=== PATIENT | male | born 1965 | race Hispanic/Latino ===

== ENCOUNTER 2020-10-24 15:41 | Emergency (ER) | payer SELFPAY ==
[2020-10-24 15:57] VITALS: BP 170/87; PULSE 64; RESP 12; TEMP 37; O2SAT 99; BMI 40.1
--- NOTE | 2020-10-24 16:19 | ED_ITS ---
HPI - Dizziness General Chief Complaint: Dizziness Stated Complaint: Dizzy, High Blood Sugar, Numb Fingers on Lt Hand Time Seen by Provider: 10/24/20 15:54 Source: patient Mode of arrival: Ambulatory History of Present Illness HPI Narrative: Patient is a 55-year-old male with history of diabetes presenting with sudden onset of dizziness that started yesterday. He said he was just sitting down when he got dizzy. It was worse when he turns his head both left and right and positional. He was able to sleep piece not had any nausea vomit ing no numbness tingling or weakness. He says now he is actually feeling better now ED department. He noticed yesterday that his glucose was in the 300 which is very abnormal for him. He has not had any fever chills cough abdominal pain painful or frequent urination or any other symptoms. 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 He has no chest pain or palpitations. MD complaint: dizziness Related Data Allergies Allergy/AdvReac Type Severity Reaction Status Date / Time ibuprofen Allergy Severe Swelling Verified 10/24/20 16:05 of Lip/Tongue/Throat povidone-iodine Allergy Severe Blister Verified 10/24/20 16:05 [From Betadine] soap [From Betadine] Allergy Severe Blister Verified 10/24/20 16:05 Review of Systems Review of Systems ROS Unobtainable: All systems reviewed & are unremarkable except as noted in HPI and below Constitutional Constitutional: Denies chills, Denies fever(s), Denies lethargy and Denies weakness Cardiovascular Cardiovascular: Denies chest pain, Denies irregular heart rhythm, Denies lightheadedness, Denies palpitations, Denies dyspnea, Denies dyspnea on exertion and Denies orthopnea Respiratory Respiratory: Denies cough, Denies dyspnea, Denies dyspnea on exertion and Denies wheezing Gastrointestinal Gastrointestinal: Denies abdominal pain, Denies change in bowel habits, Denies diarrhea, Denies nausea and Denies vomiting Genitourinary Genitourinary: Denies urinary hesitancy and Denies urinary incontinence Genitourinary: Denies urinary incontinence and Denies urinary hesitancy Musculoskeletal Musculoskeletal: Denies back pain and Denies myalgias Integumentary/Breasts Skin/Breast: Denies pruritus, Denies erythema, Denies rash and Denies wounds Neurologic Neurologic: Denies abnormal movements and Denies weakness Endocrine Endocrine: Denies palpitations Allergic/Immunologic Allergic/Immunologic: Denies wheezing Patient History Medical History (Updated 10/24/20 @ 17:36 by Martha Cordero DO) Diabetes Social History Smoking Status: Never smoker Smoking Status: Never smoker Substance Use Type: marijuana Exam Initial Vital Signs Initial Vital Signs: Vital Signs Temperature 98.6 F 10/24/20 15:57 Pulse Rate 64 10/24/20 15:57 Respiratory Rate 12 10/24/20 15:57 Blood Pressure 170/87 H 10/24/20 15:57 Pulse Oximetry 99 10/24/20 15:57 GENERAL: Well-appearing, well-nourished and in no acute distress. HEENT: Head atraumatic,EOMI, pupils reactive, face symmetric, moist mucous membranes CARDIOVASCULAR: Regular rate and rhythm without murmurs, rubs or gallops. RESPIRATORY: Breath sounds equal bilaterally, no wheezes rales or rhonchi. ABDOMEN: Soft, nontender. Normoactive bowel sounds all 4 quadrants. No gu arding or rebound. EXTREMITIES: Normal range of motion, no clubbing or edema. Neurovascularly intact NEUROLOGICAL: Alert and oriented x4.Normal gait and speech. Cranial nerves II through XII grossly intact. Good [id number], good [id number], strength equal bilaterally, no dysarthria or aphasia, sensation in tact to soft touch bilaterally, no visual changes, no facial droop SKIN: Warm, dry, no laceration, no petechiae, no rashes or lesions. Scores NIH Stroke Scale Level of Conciousness: Alert, keenly responsive Ask month/age: Answers both questions correctly. Open/close eyes, close hand: Performs both tasks correctly Best gaze horizontal: Normal Visual wang: No visual loss Facial palsy: Normal symetrical movement Left arm drift: No drift for full 10 sec Right arm drift: No drift for full 10 sec Left leg drift: No drift for full 5 sec Right leg drift: No drift for full 5 sec Limb ataxia: Absent Sensory on face/arms/legs: Normal, no sensory loss Best language: No aphasia, normal Dysarthria: Normal Extinction or inattention: No abnormality Total NIH Stroke scale score: 0 Course Orders Ordered: ED Orders 10/24/20 16:15 Complete Blood Count AUTO DIFF Stat Comprehensive Metabolic Panel Stat Lipase Stat Troponin & CK Cardiac Panel Stat 10/24/20 17:00 Urinalysis and Microscopic Stat Discontinued Medications Sodium Chloride (Normal Saline 0.9%) 1,000 mls @ 1,000 mls/hr IV CONT BREE Last Infusion: 10/24/20 18:04 Dose: 0 mls/hr Documented by: Admin: 10/24/20 16:33 Dose: 1,000 mls/hr Documented by: JOSE Vital Signs Vital signs: Vital Signs - 8 hr 10/24/20 15:57 10/24/20 16:20 10/24/20 16:30 Temperature 98.6 F Pulse Rate 64 69 68 Respiratory Rate 12 Blood Pressure 170/87 H 147/75 H Pulse Oximetry 99 98 97 10/24/20 17:00 10/24/20 18:06 Temperature Pulse Rate 65 66 Respiratory Rate 15 14 Blood Pressure 143/76 H 136/93 H Pulse Oximetry 97 98 MDM - Dizziness Lab Data Attestation: I reviewed the patient's lab results. Result diagrams: 10/24/20 16:15 10/24/20 16:15 Labs: Lab Results 10/24/20 10/24/20 10/24/20 Range/Units 16:15 16:15 17:00 WBC 7.2 (4.5-11.0) X10^3/uL RBC 5.12 (4.5-5.9) X10^6/uL Hgb 16.2 (13.5-17.5) g/dL Hct 44.7 (41-53) % MCV 87.2 (80-100) fL MCH 31.7 (26-34) PG MCHC 36.3 H (30-36) % RDW 13.1 (11.6-14.8) % Plt Count 138 L (150-400) X10^3/uL Neut % (Auto) 68.4 (50-75) % Lymph % (Auto) 22.3 L (25-40) % [place] % (Auto) 7.3 (3-14) % Eos % (Auto) 1.2 L (2-4) % Baso % (Auto) 0.8 (0-2) % Neut # (Auto) 4900 (0366-8056) /uL Lymph # (Auto) 1600 (5956-5810) /uL [place] # (Auto) 500 (0-900) /uL Eos # (Auto) 100 (0-450) /uL Baso # (Auto) 100 (0-100) /uL Sodium 134 L (137-145) mmol/L Potassium 4.3 (3.4-5.1) mmol/L Chloride 104 (98-107) mmol/L Carbon Dioxide 22 (22-32) mmol/L BUN 24 H (9-20) mg/dL Creatinine 1.24 (0.66-1.25) mg/dL Estimated GFR > 60.0 (>60) mL/min BUN/Creatinine Ratio 19.4 (6-22) Glucose 237 H (70-100) mg/dL Calcium 9.3 (8.4-10.2) mg/dL Total Bilirubin 0.5 (0.2-1.3) mg/dL AST 28 (17-59) IU/L ALT 29 (<50) IU/L Alkaline Phosphatase 81 (38-126) U/L Total Creatine Kinase 87 (55-170) U/L CK-MB (CK-2) TNP CK-MB (CK-2) Rel Index TNP Troponin I < 0.012 (0.01-0.034) ng/mL Total Protein 7.0 (6.3-8.2) g/dL Albumin 3.9 (3.5-5.0) g/dL Globulin 3.1 (1.7-4.1) g/dL Albumin/Globulin Ratio 1.3 (1.0-2.8) Lipase 112 (23-300) U/L Urine Color Yellow Urine Appearance Clear Urine pH 5.0 (4.5-8.0) Ur Specific [place] 1.025 (1.000-1.035) Urine Protein Negative (Negative) Urine Glucose (UA) 1+ H (Negative) g/dL Urine Ketones Trace H (NEGATIVE) Urine Occult Blood Negative (Negative) Urine Nitrate Negative (Negative) Urine Bilirubin Negative (NEGATIVE) Urine Urobilinogen 0.2 (0.2) E.U./dL Ur Leukocyte Esterase Negative (NEGATIVE) Urine RBC None seen (0-5/HPF) Urine WBC None seen (0-5/HPF) Urine Bacteria None seen (None) Ur Culture Indicated? Cult not indicated Urine Dip Bedside Urine Glucose 1000 mg/dl Bedside Urine Bilirubin - Negative Bedside Urine Ketone +/- 5 Urine Specific [place] 1.025 Bedside Urine Occult Blood - Negative Bedside Urine pH 6.0 Bedside Urine Protein - Negative Bedside Urine Urobilinogen - Negative Bedside Urine Nitrite - Negative Bedside Urine Leukocytes - Negative Esterase ECG Data Attestation: I personally reviewed and interpreted this ECG as follows: Prior ECG tracings: not available for review Interpretation: Normal sinus rhythm rate 67 p.r. interval 176 QRS [address] changes or T-wave inversions PVC noted MDM Narrative Medical decision making narrative: Patient's dizziness has completely resolved by the time he got to the ED he received 1 L bolus of normal saline he is ambulatory in the emergency department without any issues. Blood work is overall reassuring no neurologic deficits. At this time recommend follow-up for his diabetes control Discharge Plan Departure Patient Disposition: Home Clinical Impression: Vertigo Instructions: DI for Vertigo Activity Restrictions/Additional Instructions: *You have been diagnosed with vertigo now resolved *What to do: At this time that it sounds as though you had mild case of vertigo and likely has resolved. Your glucose is 237 today please see your primary care provider you may need adjustment in medication. *Continue to take medications as directed *Follow up with your primary care provider in 2-3 days *Return to ER if you should have increasing dizziness weakness lightheadedness or any new, worsening or concerning symptoms Referrals: Cesar Benitez MD [Primary Care Provider] -
[2020-10-24 16:20] VITALS: PULSE 69; O2SAT 98
[2020-10-24 16:30] VITALS: BP 147/75; PULSE 68; O2SAT 97
[2020-10-24 16:33] LABS: Add Manual Diff / Slide Review NO; Basophils Absolute Auto 100 /uL (0-100); Basophils Percent Auto 0.8 % (0-2); Eosinophils Absolute Auto 100 /uL (0-450); Eosinophils Percent Auto 1.2 % (2-4); Hematocrit 44.7 % (41-53); Hemoglobin 16.2 g/dL (13.5-17.5); Lymphocytes Absolute Auto 1600 /uL (1100-4500); Lymphocytes Percent Auto 22.3 % (25-40); Mean Corpuscular HGB Conc 36.3 % (30-36); Mean Corpuscular Hemoglobin 31.7 PG (26-34); Mean Corpuscular Volume 87.2 fL (80-100); Monocytes Absolute Auto 500 /uL (0-900); Monocytes Percent Auto 7.3 % (3-14); Neutrophils Absolute Auto 4900 /uL (1500-7000); Neutrophils Percent Auto 68.4 % (50-75); Platelet Count 138 X10^3/uL (150-400); Red Blood Cell Count 5.12 X10^6/uL (4.5-5.9); Red Cell Distribution Width 13.1 % (11.6-14.8); White Blood Cell Count 7.2 X10^3/uL (4.5-11.0)
[2020-10-24] MEDS: SODIUM CHLORIDE 0.9% 1,000 ML 1000 ML IV (16:33)
[2020-10-24 16:48] LABS: Alanine Aminotransferase 29 IU/L (<50); Albumin 3.9 g/dL (3.5-5.0); Albumin Globulin Ratio 1.3 (1.0-2.8); Alkaline Phosphatase 81 U/L (38-126); Aspartate Aminotransferase 28 IU/L (17-59); BUN Creatinine Ratio 19.4 (6-22); Bilirubin Total 0.5 mg/dL (0.2-1.3); Blood Urea Nitrogen 24 mg/dL (9-20); Calcium 9.3 mg/dL (8.4-10.2); Carbon Dioxide 22 mmol/L (22-32); Chloride 104 mmol/L (98-107); Creatine Kinase 87 U/L (55-170); Estimated Glomerular Filt Rate > 60.0 mL/min (>60); Globulin 3.1 g/dL (1.7-4.1); Glucose 237 mg/dL (70-100); HEMOLYSIS 43 (0-50); Lipase 112 U/L (23-300); Potassium 4.3 mmol/L (3.4-5.1); Sodium 134 mmol/L (137-145)
[2020-10-24 17:00] VITALS: BP 143/76; PULSE 65; RESP 15; O2SAT 97
[2020-10-24 17:47] LABS: Appearance Urine UA CLEAR; Bacteria Urine None Seen; Bilirubin Urine UA NEGATIVE (NEGATIVE); Color Urine UA YELLOW; Glucose Urine UA 1+ g/dL (Negative); Ketones Urine UA TRACE (NEGATIVE); Leukocyte Esterase Urine UA NEGATIVE (NEGATIVE); Nitrite Urine UA NEGATIVE (Negative); Occult Blood Urine UA NEGATIVE (Negative); Protein Urine UA NEGATIVE (Negative); RBC Urine None Seen (0-5/HPF); Specific Gravity Urine UA 1.025 (1.000-1.035); Urobilinogen Urine UA 0.2 E.U./dL (0.2); WBC Urine None Seen (0-5/HPF)
[2020-10-24 17:57] LABS: Culture Indicated Urine Cult Not Indicated
[2020-10-24 18:00] LABS: Troponin I < 0.012 ng/mL (0.01-0.034)
[2020-10-24 18:06] VITALS: BP 136/93; PULSE 66; RESP 14; O2SAT 98
== END 2020-10-24 18:07 | disposition home or self-care (01) ==
PROVIDERS: Emergency Provider Emergency Medicine; PCP Family Medicine
DX: R42 Dizziness and giddiness (principal)
CPT/HCPCS: 36415; 80053; 81001; 81003; 82550; 83690; 84484; 85025; 93005; 93010; 96360; 96361; 99284

== ENCOUNTER 2020-12-15 16:17 | Inpatient (IN) | payer SELFPAY ==
[2020-12-15] VITALS (9 sets, daily range): BP systolic 162–195; BP diastolic 86–103; PULSE 68–74; RESP 20; TEMP 36.5; O2SAT 94–99
[2020-12-15 17:02] LABS: Add Manual Diff / Slide Review NO; Basophils Absolute Auto 100 /uL (0-100); Basophils Percent Auto 0.7 % (0-2); Eosinophils Absolute Auto 100 /uL (0-450); Eosinophils Percent Auto 0.8 % (2-4); Hematocrit 44.4 % (41-53); Hemoglobin 15.8 g/dL (13.5-17.5); Lymphocytes Absolute Auto 1000 /uL (1100-4500); Lymphocytes Percent Auto 13.8 % (25-40); Mean Corpuscular HGB Conc 35.5 % (30-36); Mean Corpuscular Hemoglobin 31.5 PG (26-34); Mean Corpuscular Volume 88.7 fL (80-100); Monocytes Absolute Auto 600 /uL (0-900); Monocytes Percent Auto 8.8 % (3-14); Neutrophils Absolute Auto 5600 /uL (1500-7000); Neutrophils Percent Auto 75.9 % (50-75); Platelet Count 119 X10^3/uL (150-400); Red Blood Cell Count 5.01 X10^6/uL (4.5-5.9); Red Cell Distribution Width 13.1 % (11.6-14.8); White Blood Cell Count 7.4 X10^3/uL (4.5-11.0)
[2020-12-15 17:09] LABS: Alanine Aminotransferase 21 IU/L (<50); Albumin 3.8 g/dL (3.5-5.0); Albumin Globulin Ratio 1.3 (1.0-2.8); Alkaline Phosphatase 74 U/L (38-126); Aspartate Aminotransferase 17 IU/L (17-59); BUN Creatinine Ratio 9.3 (6-22); Bilirubin Total 0.7 mg/dL (0.2-1.3); Calcium 8.4 mg/dL (8.4-10.2); Carbon Dioxide 16 mmol/L (22-32); Chloride 101 mmol/L (98-107); Estimated Glomerular Filt Rate 5.3 mL/min (>60); Globulin 2.9 g/dL (1.7-4.1); Glucose 322 mg/dL (70-100); HEMOLYSIS < 15 (0-50); Lipase 146 U/L (23-300); Potassium 5.2 mmol/L (3.4-5.1); Sodium 132 mmol/L (137-145); Total Protein 6.7 g/dL (6.3-8.2)
[2020-12-15 17:41] LABS: Bacteria Urine None Seen; WBC Urine None Seen (0-5/HPF)
[2020-12-15 17:43] LABS: Blood Urea Nitrogen 94 mg/dL (9-20)
[2020-12-15] MEDS: ONDANSETRON 4 MG/2 ML INJ IV (17:49)
[2020-12-15] MEDS: SODIUM CHLORIDE 0.9% 1,000 ML 1000 ML IV (18:14)
[2020-12-15 18:16] LABS: Culture Indicated Urine Cult Not Indicated; RBC Urine 1-5/HPF (0-5/HPF)
--- NOTE | 2020-12-15 18:22 | ED.GENADULT ---
HPI - General Adult General Chief complaint: Abdominal Pain Stated complaint: gallbladder issues, sent by MD Time Seen by Provider: 12/15/20 18:03 Source: patient Mode of arrival: Ambulatory History of Present Illness HPI narrative: Patient is a 55-year-old male here for evaluation of right upper quadrant abdominal discomfort/right-sided abdominal discomfort. He states that he has had the symptoms for the past couple days. He thinks that is potentially his gallbladder that is causing problems. He does not remember exactly what he was doing at the time of the onset. Has had bowel movements without any changes in the symptoms. He has urinated without any changes in the symptoms. He has had kidney stones in the past and states this does not necessarily feel like a prior kidney stone. He has never had any issues with his gallbladder in the past. Has had some nausea but no vomiting. Has not tried anything for symptoms prior to arrival. Has been drinking water in taking his medications. Related Data Home Medications Medication Instructions Recorded Confirmed metformin 1,000 mg tablet 1,000 mg PO BID 12/15/20 12/15/20 Previous Rx's Medication Instructions Recorded semaglutide 3 mg tablet (Rybelsus) 3 mg PO DAILY 30 Days #30 tab 11/24/20 Allergies Allergy/AdvReac Type Severity Reaction Status Date / Time ibuprofen Allergy Severe Swelling Verified 11/24/20 15:21 of Lip/Tongue/Throat povidone-iodine Allergy Severe Blister Verified 11/24/20 15:21 [From Betadine] soap [From Betadine] Allergy Severe Blister Verified 11/24/20 15:21 Review of Systems Constitutional Constitutional: Denies fever(s) Cardiovascular Cardiovascular: Denies chest pain and Denies dyspnea Respiratory Respiratory: Denies dyspnea Gastrointestinal Gastrointestinal: Reports abdominal pain, Denies change in bowel habits and Reports nausea Genitourinary Genitourinary: Denies difficulty urinating and Denies dysuria Musculoskeletal Musculoskeletal: Denies back pain Integumentary/Breasts Skin/Breast: Denies rash Neurologic Neurologic: Reports system reviewed and no additional complaints, except as documented Psychiatric Psychiatric: Reports system reviewed and no additional complaints, except as documented Endocrine Endocrine: Reports system reviewed and no additional complaints, except as documented Hematologic/Lymphatic On Anticoagulants: No Allergic/Immunologic Allergic/Immunologic: Reports system reviewed and no additional complaints, except as documented Patient History Medical History Renal calculus Surgical History H/O lateral meniscus repair of left knee Liver laceration, major, with open wound into cavity Family History Father Diabetes mellitus Mother Lung cancer Social History Smoking Status: Never smoker Smoking Status: Never smoker Substance Use Type: marijuana Exam Initial Vital Signs Initial Vital Signs: Vital Signs Temperature 97.7 F 12/15/20 16:38 Pulse Rate 72 12/15/20 16:38 Respiratory Rate 20 12/15/20 16:38 Blood Pressure 195/103 H 12/15/20 16:38 Pulse Oximetry 97 12/15/20 16:38 Const General: cooperative and healthy appearing HENMT Head: normal to inspection and normocephalic Resp Auscultation: clear to auscultation bilaterally Cardio Rate: regular rate Rhythm: regular rhythm GI Inspection: normal to inspection Palpation: soft and No tender Back/Spine/Pelvis Back: No CVA tenderness Skin General: no rashes or lesions noted Neuro General: patient alert, patient awake and patient oriented x3 Extrem General: normal to inspection and capillary refill normal Psych Appearance: grossly normal Course Orders Ordered: ED Orders 12/15/20 20:12 XR KUB Stat 12/15/20 20:13 Consult to Urology Stat 12/15/20 20:20 COVID19 - ADMIT (SOFTWARE RELEASE MANAGER swab/PCR) Stat Acetaminophen (Acetaminophen 325 Mg Tablet) 650 mg PO Q6HR PRN PRN Reason: Fever/Mild Pain (1-3) Dextrose (Dextrose 50 % In Water 25 Gm/50 Ml Syringe) 25 gm IV PRN PRN PRN Reason: Hypoglycemia Hydromorphone HCl (Hydromorphone 0.5 Mg Inj) 0.5 mg IV Q3H PRN PRN Reason: Pain, Moderate (4-6) Last Admin: 12/16/20 02:27 Dose: 0.5 mg Documented by: CARLOS Lactated Ringer's (Lactated Ringers) 1,000 mls @ 125 mls/hr IV CONT BREE Insulin Glargine (Insulin Glargine 100 Unit/Ml 3ml Pen) 20 unit SUBCUT BEDTIME BREE Insulin Human Lispro (Insulin Lispro 100 Unit/Ml 3ml Vial) 0 unit SUBCUT ACHS BREE; Protocol Labetalol HCl (Labetalol 20 Mg/4 Ml Syringe) 5 mg IV Q4HR PRN PRN Reason: SBP > 160 Naloxone HCl (Naloxone 0.4 Mg/Ml Vial) 0.2 mg IV Q2MIN PRN PRN Reason: Opiate Reversal Ondansetron HCl (Ondansetron 4 Mg/2 Ml Inj) 4 mg IV Q8HR PRN PRN Reason: Nausea And Vomiting Discontinued Medications Hydromorphone HCl (Hydromorphone 0.5 Mg Inj) 0.5 mg IV NOW ONE Stop: 12/15/20 19:39 Last Admin: 12/15/20 21:12 Dose: 0.5 mg Documented by: CARLOS Hydromorphone HCl (Hydromorphone 0.5 Mg Inj) 0.5 mg IV NOW ONE Stop: 12/15/20 20:41 Last Admin: 12/15/20 20:47 Dose: 0.5 mg Documented by: VINI Sodium Chloride (Normal Saline 0.9%) 1,000 mls @ 1,000 mls/hr IV BOLUS ONE Stop: 12/15/20 19:03 Last Infusion: 12/15/20 20:14 Dose: 0 mls/hr Documented by: Admin: 12/15/20 18:14 Dose: 1,000 mls/hr Documented by: CARLOS Sodium Chloride (Normal Saline 0.9%) 1,000 mls @ 125 mls/hr IV CONT BREE Last Admin: 12/15/20 22:28 Dose: 125 mls/hr Documented by: BARBARA Ondansetron HCl (Ondansetron 4 Mg/2 Ml Inj) 4 mg IV NOW ONE Stop: 12/15/20 17:12 Last Admin: 12/15/20 17:49 Dose: 4 mg Documented by: CARLOS Vital Signs Vital signs: Vital Signs - 8 hr 12/15/20 20:29 12/15/20 20:30 Pulse Rate 70 69 Blood Pressure 170/94 H Pulse Oximetry 99 98 Medical Decision Making Lab Data Lab results reviewed: Yes I reviewed the patient's lab results. Result diagrams: 12/15/20 16:50 12/15/20 16:50 Labs: Lab Results 12/15/20 12/15/20 12/15/20 Range/Units 16:50 16:50 16:50 WBC 7.4 (4.5-11.0) X10^3/uL RBC 5.01 (4.5-5.9) X10^6/uL Hgb 15.8 (13.5-17.5) g/dL Hct 44.4 (41-53) % MCV 88.7 (80-100) fL MCH 31.5 (26-34) PG MCHC 35.5 (30-36) % RDW 13.1 (11.6-14.8) % Plt Count 119 L (150-400) X10^3/uL Neut % (Auto) 75.9 H (50-75) % Lymph % (Auto) 13.8 L (25-40) % [place] % (Auto) 8.8 (3-14) % Eos % (Auto) 0.8 L (2-4) % Baso % (Auto) 0.7 (0-2) % Neut # (Auto) 5600 (3131-0903) /uL Lymph # (Auto) 1000 L (3867-2987) /uL [place] # (Auto) 600 (0-900) /uL Eos # (Auto) 100 (0-450) /uL Baso # (Auto) 100 (0-100) /uL Sodium 132 L (137-145) mmol/L Potassium 5.2 H (3.4-5.1) mmol/L Chloride 101 (98-107) mmol/L Carbon Dioxide 16 L (22-32) mmol/L BUN 94 H (9-20) mg/dL Creatinine 10.1 H* (0.66-1.25) mg/dL Estimated GFR 5.3 L (>60) mL/min BUN/Creatinine Ratio 9.3 (6-22) Glucose 322 H (70-100) mg/dL Hemoglobin A1c 10.0 H (4.0-6.0) % Calcium 8.4 (8.4-10.2) mg/dL Total Bilirubin 0.7 (0.2-1.3) mg/dL AST 17 (17-59) IU/L ALT 21 (<50) IU/L Alkaline Phosphatase 74 (38-126) U/L Total Protein 6.7 (6.3-8.2) g/dL Albumin 3.8 (3.5-5.0) g/dL Globulin 2.9 (1.7-4.1) g/dL Albumin/Globulin Ratio 1.3 (1.0-2.8) Lipase 146 (23-300) U/L Urine RBC (0-5/HPF) Urine WBC (0-5/HPF) Urine Bacteria (None) Ur Culture Indicated? Ur Random Sodium (30-90) mmol/L Urine Creatinine mg/dL SARS-CoV-2 (PCR) (Negative) 12/15/20 12/15/20 12/15/20 Range/Units 17:40 17:40 20:20 WBC (4.5-11.0) X10^3/uL RBC (4.5-5.9) X10^6/uL Hgb (13.5-17.5) g/dL Hct (41-53) % MCV (80-100) fL MCH (26-34) PG MCHC (30-36) % RDW (11.6-14.8) % Plt Count (150-400) X10^3/uL Neut % (Auto) (50-75) % Lymph % (Auto) (25-40) % [place] % (Auto) (3-14) % Eos % (Auto) (2-4) % Baso % (Auto) (0-2) % Neut # (Auto) (4674-5864) /uL Lymph # (Auto) (8783-5882) /uL [place] # (Auto) (0-900) /uL Eos # (Auto) (0-450) /uL Baso # (Auto) (0-100) /uL Sodium (137-145) mmol/L Potassium (3.4-5.1) mmol/L Chloride (98-107) mmol/L Carbon Dioxide (22-32) mmol/L BUN (9-20) mg/dL Creatinine (0.66-1.25) mg/dL Estimated GFR (>60) mL/min BUN/Creatinine Ratio (6-22) Glucose (70-100) mg/dL Hemoglobin A1c (4.0-6.0) % Calcium (8.4-10.2) mg/dL Total Bilirubin (0.2-1.3) mg/dL AST (17-59) IU/L ALT (<50) IU/L Alkaline Phosphatase (38-126) U/L Total Protein (6.3-8.2) g/dL Albumin (3.5-5.0) g/dL Globulin (1.7-4.1) g/dL Albumin/Globulin Ratio (1.0-2.8) Lipase (23-300) U/L Urine RBC 1-5/hpf (0-5/HPF) Urine WBC None seen (0-5/HPF) Urine Bacteria None seen (None) Ur Culture Indicated? Cult not indicated Ur Random Sodium 79 (30-90) mmol/L Urine Creatinine 62.4 mg/dL SARS-CoV-2 (PCR) Negative (Negative) Urine Dip Bedside Urine Glucose 500 mg/dl Bedside Urine Bilirubin - Negative Bedside Urine Ketone - Negative Urine Specific [place] 1.015 Bedside Urine Occult Blood + Bedside Urine pH 6.0 Bedside Urine Protein - Negative Bedside Urine Urobilinogen - Negative Bedside Urine Nitrite - Negative Bedside Urine Leukocytes - Negative Esterase Point of care testing: Urine Dip Bedside Urine Glucose 500 mg/dl Bedside Urine Bilirubin - Negative Bedside Urine Ketone - Negative Urine Specific [place] 1.015 Bedside Urine Occult Blood + Bedside Urine pH 6.0 Bedside Urine Protein - Negative Bedside Urine Urobilinogen - Negative Bedside Urine Nitrite - Negative Bedside Urine Leukocytes - Negative Esterase Imaging Data US - abdomen: Radiologist's Impression: [address] [id number] ReportSigned Patient: Baldemar ZabalaMR#: [id number]: 1965Acct:[id number]/Sex: 55 / MDate of Service: 12/15/20Loc: EDAccession Number: [id number] Procedure: US abdomen limited Ordering Provider: Brandt Porter D.O. PROCEDURE: US ABDOMEN LIMITED INDICATIONS: RUQ pain eval for GB pathology TECHNIQUE: Real-time scanning was performed of the abdominal and retroperitoneal organs, with image documentation. COMPARISON: None. FINDINGS: Liver: The liver demonstrates diffusely increased echotexture without focal abnormalities consistent with chronic hepatocellular disease/hepatic steatosis. Gallbladder: Gallbladder is normal in sonographic appearance without gallstones, gallbladder wall thickening, pericholecystic fluid, or abnormal sonographic Aleman's. Biliary ducts: Intrahepatic bile ducts are non-dilated. Extrahepatic bile duct caliber measures 4 mm. Normal is 6-7 mm or less in diameter, or 10 mm or less post-cholecystectomy. Pancreas: Pancreas not well seen IMPRESSION: 1. The liver demonstrates diffusely increased echotexture without focal abnormalities consistent with chronic hepatocellular disease/hepatic steatosis. Consider correlation with LFTs. 2.The gallbladder is unremarkable in appearance without evidence for cholelithiasis or acute cholecystitis. Dictated by: Ryan Sandy M.D. on 12/15/2020 at 19:55 Approved by: Ryan Sandy M.D. on 12/15/2020 at 19:57 Renal ultrasound: Radiologist's Impression: [address] [id number] ReportSigned Patient: Baldemar ZabalaMR#: [id number]: 1965Acct:[id number]/Sex: 55 / MDate of Service: 12/15/20Loc: EDAccession Number: [id number] Procedure: US renal complete Ordering Provider: Brandt Porter D.O. PROCEDURE: US RENAL COMPLETE INDICATIONS: renal failure TECHNIQUE: Real-time scanning was performed of the kidneys and bladder, with image documentation. COMPARISON: None. FINDINGS: Kidneys: Right kidney measures 17.5 cm long; left kidney measures 11.7 cm long. Right renal cortical thickness is 2.5 cm; left renal cortical thickness is 1.3 cm. Renal cortical echotexture is normal. There is moderate right-sided hydronephrosis likely related to a 9 mm stone visualized at the right ureterovesicular junction. No left-sided hydronephrosis or nephrolithiasis. No suspicious solid mass lesions. 2 probable cysts are noted in the left kidney. Upper pole cyst measures 2.6 cm in maximum dimension and lower pole cyst measures 2.7 cm in maximal dimension. These are difficult to characterize given patient's scanning characteristics/body habitus. Bladder: Pre-void bladder volume is 87 mL. Post-void residual is 0 mL. Pre-void images demonstrate no intraluminal masses or stones. On pre-void images, bilateral ureteral jets were not noted with color Doppler interrogation. (Of note, ureteral jets may not be detectable in up to 25% of cases due to insufficient differences in specific gravity between ureteral and bladder urine). Miscellaneous: No free pelvic fluid. IMPRESSION: 1. Moderate right hydronephrosis likely secondary to a 9 mm right ureterovesicular junction stone. 2. Left kidney without evidence for obstructive uropathy. There are 2 probable left renal cysts visualized. These are difficult to characterize secondary to patient's scanning characteristics and body habitus. Dictated by: Ryan Sandy M.D. on 12/15/2020 at 19:57 Approved by: Ryan Sandy M.D. on 12/15/2020 at 20:02 Abdominal x-ray: Radiologist's Impression: [address] [id number] ReportSigned Patient: Baldemar ZabalaMR#: [id number]: 1965Acct:[id number]/Sex: 55 / MDate of Service: 12/15/20Loc: [id number] Number: [id number] Procedure: XR KUB Ordering Provider: Brandt Porter D.O. PROCEDURE: XR KUB INDICATIONS: urology requests study to eval R sided UVJ stone TECHNIQUE: One view of the abdomen acquired. COMPARISON: None. FINDINGS: Surgical changes and devices: None. Bowel: Bowel gas pattern is nonobstructive. Soft tissues: No suspicious abdominal calcifications. Visualized solid organ contours appear normal in size. No suspicious calcifications noted in the region of the right ureterovesicular junction. Bones: No suspicious bony lesions. IMPRESSION: Abdomen without acute radiographic abnormalities. No calculus identified in the region of the right ureterovesicular junction. Dictated by: Ryan Sandy M.D. on 12/15/2020 at 21:39 Approved by: Ryan Sandy M.D. on 12/15/2020 at 21:40 [facility] Narrative Medical decision making narrative: On lab report patient does have acute renal failure. His potassium was unremarkable. Workup of his symptoms did show a 9 mm distal right UVJ stone. His FEna is consistent with a post renal. He does have a postvoid residual of 0. I did discuss the case with Dr. Vegas with Urology who asked the patient be admitted to the medicine service given his other etiology and he would see the patient in the morning to discuss potential intervention of this stone. I then discussed the case with UNIQUE poole the [facility] provider who will admit for further evaluation and treatment. Discussed the findings of the ultrasound and the labs with the patient. His gallbladder is unremarkable on this workup. We did discuss the need for admission and continued evaluation treatment. He expressed understanding and agreement. Discharge Plan Departure Patient Disposition: Admitted As Inpatient Clinical Impression: Acute renal failure, Right distal ureteral calculus Admit Date/Time: 12/15/20 20:38 Admit Provider: Meagan Poole
[2020-12-15 18:41] LABS: Creatinine Urine Random 62.4 mg/dL; Sodium Urine Random 79 mmol/L (30-90)
--- NOTE | 2020-12-15 20:12 | DI.RAD.S_ITS ---
PROCEDURE: XR KUB INDICATIONS: urology requests study to eval R sided UVJ stone TECHNIQUE: One view of the abdomen acquired. COMPARISON: None. FINDINGS: Surgical changes and devices: None. Bowel: Bowel gas pattern is nonobstructive. Soft tissues: No suspicious abdominal calcifications. Visualized solid organ contours appear normal in size. No suspicious calcifications noted in the region of the right ureterovesicular junction. Bones: No suspicious bony lesions. IMPRESSION: Abdomen without acute radiographic abnormalities. No calculus identified in the region of the right ureterovesicular junction. Dictated by: Ryan Sandy M.D. on 12/15/2020 at 21:39 Approved by: Ryan Sandy M.D. on 12/15/2020 at 21:40
[2020-12-15] MEDS: HYDROMORPHONE 0.5 MG INJ IV ×2 (20:47→21:12)
[2020-12-15 21:17] LABS: COVID19 - ADMIT (NP swab/PCR) Negative (Negative)
--- NOTE | 2020-12-15 22:00 | P.HP_ITS ---
History of Present Illness History of Present Illness Date Patient Seen: 12/15/20 Time Patient Seen: 20:45 Chief complaint: gallbladder issues, sent by Narrative: Baldemar Zabala is a 55 y.o. male with diabetes type 2 and essential hypertension presented to the emergency department with a complaint of right- sided abdominal pain. He was found to be in severe acute renal failure with a presenting creatinine of 10.1 and a GFR of 5.3. He was initially worked up with both thought that he had acute pancreatitis however his lipase was 146 and imaging studies proved otherwise. The patient was found to have a 9 mm distal right ureterovesicular junction stone. Patient stated he had a history of having kidney stones but they passed. He denies having had a fever, he has had a little bit of diarrhea and generalized anorexia. He denies chest pain, dyspnea, he has been nauseous but no vomiting, he denies constipation, but does have chronic LE neuropathy. ED ordered a renal ultrasound and abdomen KUB. Renal ultrasound did identify the 9 mm ureterovesicular junction stone and the KUB was negative. Patient is afebrile, blood pressure 175/90, heart rate 71, respiratory rate 20, oxygen saturation 96% on room air in the weighs 224.2 kg. CBC is unremarkable except for a low platelet count of a 119 which appears to be chronic, sodium was 132, potassium 5.2, chloride 101, bicarb 16, BUN 94, creatinine 10.1, eGFR of 5.3, glucose 222, hemoglobin A1c is 10, liver enzymes and UA are within normal limits, COVID-19 PCR is negative. Patient History Medical History Renal calculus Surgical History H/O lateral meniscus repair of left knee Liver laceration, major, with open wound into cavity Family & Social History Family History Father Diabetes mellitus Mother Lung cancer Family history unavailable: No Tobacco & Substance use: Smoking Status Never smoker Substance Use Type marijuana Comment: Occasional alcohol use Meds Home Medications and Allergies Home Medications Medication Instructions Recorded Confirmed Type semaglutide 3 mg tablet (Rybelsus) 3 mg PO DAILY 30 Days #30 tab 11/24/20 11/24/20 Rx metformin 1,000 mg tablet 1,000 mg PO BID 12/15/20 12/15/20 History Allergies Allergy/AdvReac Type Severity Reaction Status Date / Time ibuprofen Allergy Severe Swelling Verified 11/24/20 15:21 of Lip/Tongue/Throat povidone-iodine Allergy Severe Blister Verified 11/24/20 15:21 [From Betadine] soap [From Betadine] Allergy Severe Blister Verified 11/24/20 15:21 Review of Systems Review of Systems ROS: Yes All systems reviewed with the patient and are negative except as otherwise documented Exam Vital Signs (past 8 hours): - 12/15/20 16:38 12/15/20 20:29 12/15/20 20:30 Temperature 97.7 F Pulse Rate 72 70 69 Respiratory Rate 20 Blood Pressure 195/103 H 170/94 H Pulse Oximetry 97 99 98 12/15/20 21:00 Temperature Pulse Rate 74 Respiratory Rate Blood Pressure 162/87 H Pulse Oximetry 97 Oxygen Delivery Method Room Air Narrative Exam Narrative: Gen: Alert, oriented, morbidly obese 55 y.o. -white male HEENT: normocephalic, atraumatic, conjunctiva clear, sclera non-icteric, oral mucosa pink and moist Neck: supple, full ROM, no JVD, trachea is midline Resp: Lungs CTA, non-labored breathing CV: RRR, no murmur or rubs Abd: obese, soft, non-tender, normoactive BTs Skin: no lesions or rashes, dry and intact Neuro: Alert and oriented X 4 w/no focal deficits. Speech clear and coherent. Extremities: moves all 4 extremities, is ambulatory, negative Nelly?s sign Psyche: normal mood and affect. Objective Labs Result Diagrams: 12/15/20 16:50 12/15/20 16:50 Labs: Laboratory Results - last 24 hr 12/15/20 12/15/20 12/15/20 16:50 16:50 17:40 WBC 7.4 RBC 5.01 Hgb 15.8 Hct 44.4 MCV 88.7 MCH 31.5 MCHC 35.5 RDW 13.1 Plt Count 119 L Neut % (Auto) 75.9 H Lymph % (Auto) 13.8 L [place] % (Auto) 8.8 Eos % (Auto) 0.8 L Baso % (Auto) 0.7 Neut # (Auto) 5600 Lymph # (Auto) 1000 L [place] # (Auto) 600 Eos # (Auto) 100 Baso # (Auto) 100 Sodium 132 L Potassium 5.2 H Chloride 101 Carbon Dioxide 16 L BUN 94 H Creatinine 10.1 H* Estimated GFR 5.3 L BUN/Creatinine Ratio 9.3 Glucose 322 H Calcium 8.4 Total Bilirubin 0.7 AST 17 ALT 21 Alkaline Phosphatase 74 Total Protein 6.7 Albumin 3.8 Globulin 2.9 Albumin/Globulin Ratio 1.3 Lipase 146 Urine RBC 1-5/hpf Urine WBC None seen Urine Bacteria None seen Ur Culture Indicated? Cult not indicated Ur Random Sodium Urine Creatinine SARS-CoV-2 (PCR) 12/15/20 12/15/20 17:40 20:20 WBC RBC Hgb Hct MCV MCH MCHC RDW Plt Count Neut % (Auto) Lymph % (Auto) [place] % (Auto) Eos % (Auto) Baso % (Auto) Neut # (Auto) Lymph # (Auto) [place] # (Auto) Eos # (Auto) Baso # (Auto) Sodium Potassium Chloride Carbon Dioxide BUN Creatinine Estimated GFR BUN/Creatinine Ratio Glucose Calcium Total Bilirubin AST ALT Alkaline Phosphatase Total Protein Albumin Globulin Albumin/Globulin Ratio Lipase Urine RBC Urine WBC Urine Bacteria Ur Culture Indicated? Ur Random Sodium 79 Urine Creatinine 62.4 SARS-CoV-2 (PCR) Negative Assessment & Plan Assessment & Plan narrative: Baldemar Zabala is admitted as an inpatient for further surgical treatment for removal of a 9 mm UVJ stone. 1. Acute renal failure in the setting of probable obstructing 9 mm ureterovesic ular junction stone, acute, present on admission * Dr. Vegas, urology has been notified and plans to take the patient into the OR tomorrow morning * Patient is NPO after midnight * If renal function does not improve post surgery X 1 day, patient may require urgent referral to a facility with a resume specialist to assess for emergent dialysis 2. Diabetes type 2 poorly controlled with hemoglobin A1c of 10 * He is initiated on Lantus 30 units at bedtime this will start tonight * He is on a low-dose correctional insulin scale q.6 hours until after surgery * NPO after midnight 3. Hypertension, poorly controlled, present on admission * Unknown if due to pain or acute renal failure * Will start him on labetalol 5 mg q.4 hours as needed for a systolic greater than 160 VTE prophylaxis: Wells risk score: 0 Bilateral SCDs Consults: Dr. Vegas, Urology consult and involvement is appreciated. Patient is admitted under inpatient status with expected length of stay greater than 2 midnights due to severity of presenting symptoms, risk of adverse event, and complexity of treatment plan. FEN: IV LR at 125 ml/hour, NPO, CMP and magnesium in the am. Dispo: probable discharge to home Code Status: Full code as discussed with patient Carmen Lind, his girlfriend and surrogate/POA COVID-19 COVID-19 status: Negative Result date/Date tested (Pos, Neg/Pending): 12/15/20 Scores Wells' Criteria for PE Clinical signs and symptoms of DVT: No PE is #1 Dx or equally likely: No Heart rate > 100: No Immobilization at least 3 days or surg in previous 4 weeks: No History of PE or DVT: No Hemoptysis: No Malignancy w/Treatment within 6 months or palliative: No Wells' PE Score total: 0 Quality VTE Deep Vein Thrombosis/Pulmonary Embolism Present on Admission: No
[2020-12-15] MEDS: SODIUM CHLORIDE 0.9% 1,000 ML 125 ML IV (22:28)
[2020-12-16] VITALS (45 sets, daily range): BP systolic 128–178; BP diastolic 72–99; PULSE 63–97; RESP 10–23; TEMP 35.9–37.2; O2SAT 92–100; BMI 38.7
--- NOTE | 2020-12-16 | DI.RAD.S_ITS ---
PROCEDURE: XR ABDOMEN 1V INDICATIONS: RIGHT STENT PLACEMENT TECHNIQUE: One view of the abdomen acquired. COMPARISON: [facility], CT, CT ABDOMEN PELVIS WO CON, 12/16/2020, 7:32. FINDINGS: Intraoperative images demonstrating a placement of a right ureterovesicular stent. There is no visualized contrast. IMPRESSION: Right ureterovesicular stent as above. Dictated by: Isabella Gotti M.D. on 12/16/2020 at 13:25 Approved by: Isabella Gotti M.D. on 12/16/2020 at 13:26
[2020-12-16] MEDS: HYDROMORPHONE 0.5 MG INJ IV ×3 (02:27→08:28)
[2020-12-16 06:33] LABS: Add Manual Diff / Slide Review NO; Basophils Absolute Auto 0 /uL (0-100); Basophils Percent Auto 0.3 % (0-2); Eosinophils Absolute Auto 100 /uL (0-450); Eosinophils Percent Auto 0.9 % (2-4); Hematocrit 42.3 % (41-53); Hemoglobin 14.9 g/dL (13.5-17.5); Lymphocytes Absolute Auto 900 /uL (1100-4500); Lymphocytes Percent Auto 11.3 % (25-40); Mean Corpuscular HGB Conc 35.2 % (30-36); Mean Corpuscular Hemoglobin 31.5 PG (26-34); Mean Corpuscular Volume 89.6 fL (80-100); Monocytes Absolute Auto 700 /uL (0-900); Monocytes Percent Auto 9.3 % (3-14); Neutrophils Absolute Auto 6100 /uL (1500-7000); Neutrophils Percent Auto 78.2 % (50-75); Platelet Count 116 X10^3/uL (150-400); Red Blood Cell Count 4.72 X10^6/uL (4.5-5.9); Red Cell Distribution Width 12.7 % (11.6-14.8); White Blood Cell Count 7.7 X10^3/uL (4.5-11.0)
[2020-12-16 06:45] LABS: Alanine Aminotransferase 18 IU/L (<50); Albumin 3.2 g/dL (3.5-5.0); Albumin Globulin Ratio 1.1 (1.0-2.8); Alkaline Phosphatase 68 U/L (38-126); Aspartate Aminotransferase 20 IU/L (17-59); BUN Creatinine Ratio 9.1 (6-22); Bilirubin Total 0.7 mg/dL (0.2-1.3); Bilirubin Unconjugated 0.2 mg/dL (0.0-1.1); Blood Urea Nitrogen 98 mg/dL (9-20); Carbon Dioxide 15 mmol/L (22-32); Chloride 105 mmol/L (98-107); Estimated Glomerular Filt Rate 4.9 mL/min (>60); Glucose 284 mg/dL (70-100); HEMOLYSIS 17 (0-50); Magnesium 2.1 mg/dL (1.6-2.3); Sodium 132 mmol/L (137-145); Total Protein 6.2 g/dL (6.3-8.2)
[2020-12-16 06:50] LABS: Potassium 6.2 mmol/L (3.4-5.1)
--- NOTE | 2020-12-16 07:37 | DI.CT.S_ITS ---
PROCEDURE: CT ABDOMEN PELVIS WO CON INDICATIONS: right ureteral stone, pain right flank TECHNIQUE: Axial sections were acquired from the lung bases to the pubic symphysis. Coronal and sagittal reformats were performed. For radiation dose reduction, the following was used: automated exposure control, adjustment of mA and/or kV according to patient size. COMPARISON:[facility], US, US RENAL COMPLETE, 12/15/2020, 18:03. [facility], CR, XR KUB, 12/15/2020, 20:13. FINDINGS: Image quality: Excellent. Lung bases: There is mild dependent atelectasis. Heart: No significant findings. URINARY: Right Kidney: There is moderate to severe hydronephrosis with prominent perinephric stranding. There are multiple right renal cysts, with the largest measuring up to 7.3 cm. Right Ureter: There is moderate hydroureter with periureteral fat stranding extending to the ureterovesicular junction where there is an obstructing stone measuring up to 6 mm. Left Kidney: The left kidney is atrophic in size. No stones or hydronephrosis. There are multiple left renal cysts. Left Ureter: No hydroureter. Bladder: The urinary bladder is partially distended. There is concentric bladder wall thickening with fat stranding. ABDOMEN: Liver: Unremarkable. Gallbladder: Unremarkable. Biliary ducts: Unremarkable. Pancreas: Unremarkable. Spleen: Unremarkable. Adrenal Glands: Unremarkable. Stomach and Bowel: Stomach, small bowel loops, and colon are unremarkable. The appendix is normal in appearance. There is colonic diverticulosis without acute diverticulitis. Peritoneum: No abnormal intraperitoneal fluid. No free air. Ventral Wall: No hernia. Abdominal Nodes: No enlarged retroperitoneal or mesenteric lymph nodes. Vessels: Aorta and inferior vena cava are normal in size. PELVIS: Pelvic Organs: Unremarkable. Pelvic Nodes: Unremarkable. Miscellaneous: No inguinal hernias are seen. Bones: Unremarkable. IMPRESSION: 1. Obstructing 6 mm urinary stone in the right UVJ with associated moderate to severe right hydroureteronephrosis. No additional renal stones identified. 2. Concentric bladder wall thickening and fat stranding suggestive of a cystitis. Recommend correlation with urinalysis. Dictated by: Prabhu Metz M.D. on 12/16/2020 at 9:18 Approved by: Prabhu Metz M.D. on 12/16/2020 at 9:38
[2020-12-16] MEDS: CALCIUM GLUCONATE 4.65 MEQ in SODIUM CHLORIDE 0.9% 50 ML 180 ML IV (07:48)
--- NOTE | 2020-12-16 07:49 | P.CONS_ITS ---
History of Present Illness Consult details Date Patient Seen: 12/16/20 Time Patient Seen: 07:49 Chief complaint: gallbladder issues, sent by MD Reason for consult: 9 mm right ureterovesical junction calculus Requesting provider: Brandt Porter Narrative: The patient is a 55-year-old male presenting to [facility] ED with a 2 day complaint of right upper quadrant pain. Biliary obstruction was ruled out by abdominal ultrasound. Moderate right hydronephrosis was documented by ultrasound. A 9 mm calculus was described at the right ureterovesical junction. Flat plate KUB failed to demonstrate a stone, suggesting uric acid etiology. The patient has history of nephrolithiasis and states he has passed previous stones. He has underlying comorbidities of poorly controlled diabetes, poorly controlled hypertension, and obesity. Head presentation use found to be hypertensive and laboratories indicate acute r enal failure with creatinine of 10.1. The hospitalist team has raise concern about the ability to manage the patient's degree of acute renal failure within this facility. Outside consultations are being conducted at this time. Meds Home Medications and Allergies Home Medications Medication Instructions Recorded Confirmed Type semaglutide 3 mg tablet (Rybelsus) 3 mg PO DAILY 30 Days #30 tab 11/24/20 11/24/20 Rx metformin 1,000 mg tablet 1,000 mg PO BID 12/15/20 12/15/20 History Allergies Allergy/AdvReac Type Severity Reaction Status Date / Time ibuprofen Allergy Severe Swelling Verified 11/24/20 15:21 of Lip/Tongue/Throat povidone-iodine Allergy Severe Blister Verified 11/24/20 15:21 [From Betadine] soap [From Betadine] Allergy Severe Blister Verified 11/24/20 15:21 Review of Systems Review of Systems ROS: Yes All systems reviewed with the patient and are negative except as otherwise documented Exam Vital Signs (past 8 hours): - 12/16/20 00:00 12/16/20 00:30 12/16/20 01:00 Pulse Rate 69 72 63 Blood Pressure 139/77 128/72 Pulse Oximetry 92 95 94 12/16/20 01:30 12/16/20 02:00 12/16/20 02:30 Pulse Rate 69 68 65 Blood Pressure 135/83 Pulse Oximetry 95 97 96 12/16/20 03:00 12/16/20 03:30 12/16/20 03:58 Pulse Rate 70 68 69 Blood Pressure 141/77 H Pulse Oximetry 93 94 95 12/16/20 04:00 12/16/20 04:30 12/16/20 05:00 Pulse Rate 65 67 63 Blood Pressure 139/81 Pulse Oximetry 95 95 97 12/16/20 05:01 12/16/20 05:30 Pulse Rate 65 63 Blood Pressure 163/78 H Pulse Oximetry 96 95 Oxygen Delivery Method Room Air Narrative Exam Narrative: Well-developed, obese white male in no current distress. Head/neck- sclera clear pupils are round and equal bilaterally. Chest-clear, equal and unlabored expansion bilaterally. Heart-regular rate and rhythm. Objective Labs Result Diagrams: 12/16/20 06:10 12/16/20 06:10 Labs: Laboratory Results - last 24 hr 12/15/20 12/15/20 12/15/20 16:50 16:50 16:50 WBC 7.4 RBC 5.01 Hgb 15.8 Hct 44.4 MCV 88.7 MCH 31.5 MCHC 35.5 RDW 13.1 Plt Count 119 L Neut % (Auto) 75.9 H Lymph % (Auto) 13.8 L [place] % (Auto) 8.8 Eos % (Auto) 0.8 L Baso % (Auto) 0.7 Neut # (Auto) 5600 Lymph # (Auto) 1000 L [place] # (Auto) 600 Eos # (Auto) 100 Baso # (Auto) 100 Sodium 132 L Potassium 5.2 H Chloride 101 Carbon Dioxide 16 L BUN 94 H Creatinine 10.1 H* Estimated GFR 5.3 L BUN/Creatinine Ratio 9.3 Glucose 322 H Hemoglobin A1c 10.0 H Calcium 8.4 Magnesium Total Bilirubin 0.7 Conjugated Bilirubin Unconjugated Bilirubin AST 17 ALT 21 Alkaline Phosphatase 74 Total Protein 6.7 Albumin 3.8 Globulin 2.9 Albumin/Globulin Ratio 1.3 Lipase 146 Urine RBC Urine WBC Urine Bacteria Ur Culture Indicated? Ur Random Sodium Urine Creatinine SARS-CoV-2 (PCR) 12/15/20 12/15/20 12/15/20 17:40 17:40 20:20 WBC RBC Hgb Hct MCV MCH MCHC RDW Plt Count Neut % (Auto) Lymph % (Auto) [place] % (Auto) Eos % (Auto) Baso % (Auto) Neut # (Auto) Lymph # (Auto) [place] # (Auto) Eos # (Auto) Baso # (Auto) Sodium Potassium Chloride Carbon Dioxide BUN Creatinine Estimated GFR BUN/Creatinine Ratio Glucose Hemoglobin A1c Calcium Magnesium Total Bilirubin Conjugated Bilirubin Unconjugated Bilirubin AST ALT Alkaline Phosphatase Total Protein Albumin Globulin Albumin/Globulin Ratio Lipase Urine RBC 1-5/hpf Urine WBC None seen Urine Bacteria None seen Ur Culture Indicated? Cult not indicated Ur Random Sodium 79 Urine Creatinine 62.4 SARS-CoV-2 (PCR) Negative 12/16/20 12/16/20 06:10 06:10 WBC 7.7 RBC 4.72 Hgb 14.9 Hct 42.3 MCV 89.6 MCH 31.5 MCHC 35.2 RDW 12.7 Plt Count 116 L Neut % (Auto) 78.2 H Lymph % (Auto) 11.3 L [place] % (Auto) 9.3 Eos % (Auto) 0.9 L Baso % (Auto) 0.3 Neut # (Auto) 6100 Lymph # (Auto) 900 L [place] # (Auto) 700 Eos # (Auto) 100 Baso # (Auto) 0 Sodium 132 L Potassium 6.2 H Chloride 105 Carbon Dioxide 15 L BUN 98 H Creatinine 10.8 H* Estimated GFR 4.9 L BUN/Creatinine Ratio 9.1 Glucose 284 H Hemoglobin A1c Calcium 8.0 L Magnesium 2.1 Total Bilirubin 0.7 Conjugated Bilirubin 0.0 Unconjugated Bilirubin 0.2 AST 20 ALT 18 Alkaline Phosphatase 68 Total Protein 6.2 L Albumin 3.2 L Globulin 3.0 Albumin/Globulin Ratio 1.1 Lipase Urine RBC Urine WBC Urine Bacteria Ur Culture Indicated? Ur Random Sodium Urine Creatinine SARS-CoV-2 (PCR) Assessment & Plan Assessment and plan (1) Right distal ureteral calculus: Status: Acute (2) Acute renal failure: Status: Acute Assessment & Plan narrative: Assessment: 1. Obstructing 9 mm right ureterovesical junction calculus by ultrasound. Stone is not seen on flat plate KUB suggesting uric acid etiology. 2. Acute renal failure. Medical team deliberating disposition currently. Plan: 1. Stat CT KUB. 2. If patient is managed in this facility then proceed to cystoscopy/right ureteroscopic laser lithotripsy/right stent placement today. 3. Continue NPO status.
[2020-12-16] MEDS: INSULIN REGULAR 100 UNIT/ML 3 ML VIAL 10 UNIT SUBCUT (07:51)
[2020-12-16] MEDS: SODIUM POLYSTYRENE SULFON/SORB 15 GM/60 ML CUP 30 GM PO (07:52)
[2020-12-16] MEDS: ALBUTEROL 2.5 MG/3 ML NEB (ADULT) 10 MG INH (08:11)
[2020-12-16] MEDS: SODIUM CHLORIDE 0.9% 1,000 ML 125 ML IV ×3 (08:13→13:00)
[2020-12-16] MEDS: SODIUM BICARB 8.4% SYRINGE 50 MEQ IV (08:15)
[2020-12-16] MEDS: CEFAZOLIN VIAL 3 GM in SODIUM CHLORIDE 0.9% 100 ML 200 ML IV (10:58)
[2020-12-16] MEDS: LACTATED RINGERS 1,000 ML 42 ML IV (11:39)
--- NOTE | 2020-12-16 11:53 | SUR.HOLD ---
Report from YING Bowling (ER). Pt brought to preop holding. Placed on monitor - NSR with occasional PVC. Gluc[place] = 304. Dr Banks aware. No orders at this time.
--- NOTE | 2020-12-16 12:05 | PM.PREOP ---
Pre-operative Note Interval Note History & Physical reviewed/Exam performed by Physician: Yes Changes to H&P: No
[2020-12-16 12:17] LABS: BUN Creatinine Ratio 9.4 (6-22); Blood Urea Nitrogen 101 mg/dL (9-20); Carbon Dioxide 12 mmol/L (22-32); Chloride 106 mmol/L (98-107); Estimated Glomerular Filt Rate 4.9 mL/min (>60); Glucose 321 mg/dL (70-100); HEMOLYSIS 27 (0-50); Potassium 5.2 mmol/L (3.4-5.1); Sodium 133 mmol/L (137-145)
--- NOTE | 2020-12-16 12:44 | SUR.OPER ---
Lithotomy on padded OR bed, head on pillow, arms secured on padded arm boards at <90 degrees abduction. Legs secured in padded yellow fins stirrups. Previous Urinary catheter removed prior to sterile prep. Urinary output clear yellow, approx 500mls. pt was inc of bowel movement, brown, loose, mushy. Incontinence care provided.
--- NOTE | 2020-12-16 12:48 | P.OP_ITS ---
Operative Date/Time/Diagnoses Date of procedure: 12/16/20 Time of procedure: 12:48 Pre-op diagnosis: 1. Obstructing right ureterovesical junction calculus. 2. Acute renal failure. Post-op diagnosis: same Procedure & Clinicians Procedure: 1. Cystoscopy/right ureteral stone manipulation without removal. 2. Cystoscopy/placement right ureteral stent (8 Cam[place]onian by 22-32 cm multi- length). Same procedure as scheduled: Yes Indications: 1. Obstructing right ureterovesical junction calculus. 2. Acute renal failure. Surgeon: Clair Vegas Click Yes if Unassisted: Yes Anesthesia Type: General Operative Notes Findings: 1. Urethra-normal caliber without annular stricture or lesion. 2. External sphincter coapted with normal overlying urothelium. 3. Prostate-3.5-4 cm length with mild lateral lobe hyperplasia and elevated median bar. 4. Bladder-trace trabeculation. The right intramural ureter head fullness/mass effect consistent with impacted stone and associated erythema. There is a small organizing clot line dependently in the floor the bladder. Closure Type: not applicable Specimen(s): none sent Applied: other (Eight Cam[place]onian by 22-32 cm multi-length stent) Estimated Blood Loss (mL): 0 Blood products transfused: none Procedure in detail: The patient was positioned supine and administered general anesthesia. The lower abdomen, genitalia, and groin were prepped and draped in sterile fashion. Twenty-two Cam[place]onian panendoscope was then passed into the lower urinary tract with the findings as described above. Next, a 0.35 hybrid guidewire was advanced through the scope, but attempts to access the right ureteral orifice repeat complicated due to mass effect to the impacted stone. Therefore a 5 Cam[place]onian pollock catheter was advanced over the wire to assist in stiffening and improving guidance of the flexible tip of the hybrid guidewire. This maneuver, indeed was successful and the 0.35 hybrid wire was then advanced without difficulty into the right collecting system under direct and fluoroscopic guidance. The [place] catheter was then backloaded off the guidewire. Next, an 8 [place]onian by 22-32 cm multi-length stent was selected. This was advanced over the hybrid guidewire under direct and fluoroscopic guidance and positioned satisfactory of the right collecting system. NO RETRIEVAL LINE WAS LEFT ATTACHED. The panendoscope was then removed. A 16 Cam[place]onian Fern[place] catheter was then inserted and lower urinary tract, the balloon filled to 10 cc, and was then placed to gravity drainage. The patient was then repositioned in supine, was awakened, and transferred to [facility] for transportation to recovery. Complications: none Post-operative Condition: stable Disposition: PACU Plan for aftercare: Admit to hospitalist service acute Care.
[2020-12-16] MEDS: INSULIN REGULAR 100 UNIT/ML 3 ML VIAL 10 UNIT IV (13:18)
[2020-12-16] MEDS: OXYCODONE IR 5 MG TABLET PO ×3 (13:27→21:02)
--- NOTE | 2020-12-16 13:44 | SUR.PHASEI ---
Stable PACU stay, Dr. Bashir not available. [address] Sanchez
--- NOTE | 2020-12-16 14:31 | SUR.PHASEI ---
Blood sugar 240, Dr. Sanchez made aware, no new orders received.
--- NOTE | 2020-12-16 14:33 | SUR.PHASEI ---
Bed not cleaned, pt kept in PACU, now ready, pt transported up to room.
[2020-12-16 15:48] LABS: BUN Creatinine Ratio 10.1 (6-22); Blood Urea Nitrogen 84 mg/dL (9-20); Calcium 8.3 mg/dL (8.4-10.2); Carbon Dioxide 18 mmol/L (22-32); Chloride 110 mmol/L (98-107); Estimated Glomerular Filt Rate 6.7 mL/min (>60); Glucose 235 mg/dL (70-100); HEMOLYSIS < 15 (0-50); Potassium 4.9 mmol/L (3.4-5.1); Sodium 137 mmol/L (137-145)
[2020-12-16] MEDS: LACTATED RINGERS 1,000 ML 125 ML IV (17:03)
[2020-12-16] MEDS: INSULIN LISPRO 100 UNIT/ML 3ML VIAL SUBCUT ×2 (17:17→21:03)
--- NOTE | 2020-12-16 18:31 | PM.PN.1 ---
Subjective Subjective Interval history: Patient was seen this morning with RENE with elevated potassium at 6.2. He received kayexalate, insulin, calcium gluconate, alubterol, and bicarbonate. His potassium improved to 5.2. He went to OR for stent placement and felt much improved afterwards. His repeated creatinine was improving to 8.35 from 10.8. Exam Vital Signs (past 8 hours): - 12/16/20 11:00 12/16/20 11:40 12/16/20 13:00 Temperature 98.0 F 97.7 F Pulse Rate 86 84 86 Respiratory Rate 23 14 16 Blood Pressure 164/94 H 163/99 H Pulse Oximetry 97 97 99 12/16/20 13:04 12/16/20 13:10 12/16/20 13:15 Temperature Pulse Rate 85 82 82 Respiratory Rate 16 10 L 16 Blood Pressure 178/97 H 165/97 H 176/90 H Pulse Oximetry 97 98 97 12/16/20 13:31 12/16/20 13:45 12/16/20 14:00 Temperature Pulse Rate 79 71 77 Respiratory Rate 11 L 16 16 Blood Pressure 169/93 H 149/85 H 158/85 H Pulse Oximetry 96 97 99 12/16/20 14:42 12/16/20 15:45 12/16/20 16:45 Temperature 96.6 F L 97.7 F Pulse Rate 68 72 71 Respiratory Rate 12 17 Blood Pressure 154/90 H 149/84 H 141/77 H Pulse Oximetry 99 98 97 12/16/20 17:45 Temperature Pulse Rate 85 Respiratory Rate Blood Pressure 141/85 H Pulse Oximetry 97 Oxygen Delivery Method Room Air Oxygen Flow Rate 0 Narrative Exam Narrative: Gen: no acute distress HEENT: moist mucous membranes Neck: no JVD, trachea is midline Resp: lungs clear bilaterally CV: regular rate and rhythm, no murmur Abd: obese, soft, non-tender, normal bowel sounds Skin: no lesions or rashes, dry and intact Objective Labs Result Diagrams: 12/16/20 06:10 12/16/20 15:26 Labs: Laboratory Results - last 24 hr 12/15/20 12/15/20 12/15/20 16:50 17:40 20:20 WBC RBC Hgb Hct MCV MCH MCHC RDW Plt Count Neut % (Auto) Lymph % (Auto) [place] % (Auto) Eos % (Auto) Baso % (Auto) Neut # (Auto) Lymph # (Auto) [place] # (Auto) Eos # (Auto) Baso # (Auto) Sodium Potassium Chloride Carbon Dioxide BUN Creatinine Estimated GFR BUN/Creatinine Ratio Glucose Hemoglobin A1c 10.0 H Calcium Magnesium Total Bilirubin Conjugated Bilirubin Unconjugated Bilirubin AST ALT Alkaline Phosphatase Total Protein Albumin Globulin Albumin/Globulin Ratio Ur Random Sodium 79 Urine Creatinine 62.4 SARS-CoV-2 (PCR) Negative 12/16/20 12/16/20 12/16/20 06:10 06:10 10:41 WBC 7.7 RBC 4.72 Hgb 14.9 Hct 42.3 MCV 89.6 MCH 31.5 MCHC 35.2 RDW 12.7 Plt Count 116 L Neut % (Auto) 78.2 H Lymph % (Auto) 11.3 L [place] % (Auto) 9.3 Eos % (Auto) 0.9 L Baso % (Auto) 0.3 Neut # (Auto) 6100 Lymph # (Auto) 900 L Madison # (Auto) 700 Eos # (Auto) 100 Baso # (Auto) 0 Sodium 132 L 133 L Potassium 6.2 H 5.2 H Chloride 105 106 Carbon Dioxide 15 L 12 L BUN 98 H 101 H Creatinine 10.8 H* 10.8 H* Estimated GFR 4.9 L 4.9 L BUN/Creatinine Ratio 9.1 9.4 Glucose 284 H 321 H Hemoglobin A1c Calcium 8.0 L 8.0 L Magnesium 2.1 Total Bilirubin 0.7 Conjugated Bilirubin 0.0 Unconjugated Bilirubin 0.2 AST 20 ALT 18 Alkaline Phosphatase 68 Total Protein 6.2 L Albumin 3.2 L Globulin 3.0 Albumin/Globulin Ratio 1.1 Ur Random Sodium Urine Creatinine SARS-CoV-2 (PCR) 12/16/20 15:26 WBC RBC Hgb Hct MCV MCH MCHC RDW Plt Count Neut % (Auto) Lymph % (Auto) [place] % (Auto) Eos % (Auto) Baso % (Auto) Neut # (Auto) Lymph # (Auto) [place] # (Auto) Eos # (Auto) Baso # (Auto) Sodium 137 Potassium 4.9 Chloride 110 H Carbon Dioxide 18 L BUN 84 H Creatinine 8.35 H* Estimated GFR 6.7 L BUN/Creatinine Ratio 10.1 Glucose 235 H Hemoglobin A1c Calcium 8.3 L Magnesium Total Bilirubin Conjugated Bilirubin Unconjugated Bilirubin AST ALT Alkaline Phosphatase Total Protein Albumin Globulin Albumin/Globulin Ratio Ur Random Sodium Urine Creatinine SARS-CoV-2 (PCR) PFSH Medical History Renal calculus Surgical History H/O lateral meniscus repair of left knee Liver laceration, major, with open wound into cavity Family History Father Diabetes mellitus Mother Lung cancer Social History household members: significant other Smoking Status: Never smoker Assessment & Plan Assessment & Plan narrative: Mr. Zabala is a 55M with PMH of poorly controlled DM, HTN who presents with acute renal failure secondary to obstructing ureterovesicular junction stone. 1. Acute renal failure in the setting of probable obstructing 9 mm ureterovesicular junction stone with hyperkalemia, acute, present on admission -Dr. Vegas, urology took patient on 12/16 for stent placement -hyperkalemia resolved after stent placement -creatinine improving after stent placement from 10.8->8.35 2. Diabetes type 2 poorly controlled with hemoglobin A1c of 10 -he is on 20U lantus and low dose insulin sliding scale -he is on a low-dose correctional insulin scale q.6 hours until after surgery 3. Hypertension, poorly controlled, present on admission -Unknown if due to pain or acute renal failure -continue to monitor and consider adding medication if remains hypertensive 4. Obesity -BMI 38.7 -outpatient follow up with PCP Patient is admitted under inpatient status with expected length of stay greater than 2 midnights due to severity of presenting symptoms, risk of adverse event, and complexity of treatment plan. Code Status: Full code as discussed with patient Carmen Lind, his girlfriend and surrogate/POA Quality VTE Deep Vein Thrombosis/Pulmonary Embolism Present on Admission: No
[2020-12-16] MEDS: SODIUM CHLORIDE 0.9% 1,000 ML 100 ML IV (21:02)
[2020-12-16] MEDS: INSULIN GLARGINE 100 UNIT/ML 3ML PEN 20 UNIT SUBCUT (21:32)
[2020-12-17] VITALS: BP 128/64; PULSE 76; RESP 18; TEMP 36.4; O2SAT 96
[2020-12-17] MEDS: OXYCODONE IR 5 MG TABLET PO ×2 (01:31→09:05)
[2020-12-17 02:37] LABS: BUN Creatinine Ratio 13.9 (6-22); Blood Urea Nitrogen 52 mg/dL (9-20); Calcium 8.4 mg/dL (8.4-10.2); Carbon Dioxide 20 mmol/L (22-32); Chloride 113 mmol/L (98-107); Estimated Glomerular Filt Rate 16.8 mL/min (>60); Glucose 247 mg/dL (70-100); HEMOLYSIS < 15 (0-50); Potassium 5.1 mmol/L (3.4-5.1); Sodium 139 mmol/L (137-145)
[2020-12-17 05:17] VITALS: BP 124/68; PULSE 80; RESP 18; TEMP 36.6; O2SAT 98
[2020-12-17] MEDS: SODIUM CHLORIDE 0.9% 1,000 ML 100 ML IV (07:32)
[2020-12-17 07:36] VITALS: O2SAT 97
--- NOTE | 2020-12-17 07:40 | PM.PN.1 ---
Subjective Subjective Date Patient Seen: 12/17/20 Time Patient Seen: 07:40 Interval history: The patient is postop day 1. Status post cystoscopy and placement of right ureteral stent for obstruction and RENE. He reports a smooth an excellent initial recovery. Pain has not been an issue. Electrolytes and laboratories have markedly improved since stent placement and medical interventions to address hyperkalemia, etc.. Exam Vital Signs (past 8 hours): - 12/17/20 00:00 12/17/20 05:17 12/17/20 07:36 Temperature 97.6 F 97.8 F Pulse Rate 76 80 Respiratory Rate 18 18 Blood Pressure 128/64 124/68 Pulse Oximetry 96 98 97 Oxygen Delivery Method Room Air Oxygen Flow Rate 0 Narrative Exam Narrative: Not repeated Objective Labs Result Diagrams: 12/16/20 06:10 12/17/20 02:20 Labs: Laboratory Results - last 24 hr 12/16/20 12/16/20 12/17/20 10:41 15:26 02:20 Sodium 133 L 137 139 Potassium 5.2 H 4.9 5.1 Chloride 106 110 H 113 H Carbon Dioxide 12 L 18 L 20 L BUN 101 H 84 H 52 H Creatinine 10.8 H* 8.35 H* 3.74 H Estimated GFR 4.9 L 6.7 L 16.8 L BUN/Creatinine Ratio 9.4 10.1 13.9 Glucose 321 H 235 H 247 H Calcium 8.0 L 8.3 L 8.4 PFSH Medical History Renal calculus Surgical History H/O lateral meniscus repair of left knee Liver laceration, major, with open wound into cavity Family History Father Diabetes mellitus Mother Lung cancer Social History household members: significant other Smoking Status: Never smoker Assessment & Plan Assessment and plan (1) Right distal ureteral calculus: Status: Acute (2) Acute renal failure: Status: Acute Assessment & Plan narrative: Assessment: 1. Improved postoperative day 1. Status post cystoscopy right ureteral stent placement for obstruction and RENE Plan: 1. Recommend follow-up in the Urology Clinic in 3-4 weeks. 2. Cystoscopy and right ureteroscopic laser lithotripsy-future. 3. Metabolic stone risk evaluation-future. Quality VTE Deep Vein Thrombosis/Pulmonary Embolism Present on Admission: No
[2020-12-17 07:45] LABS: Add Manual Diff / Slide Review NO; Basophils Absolute Auto 0 /uL (0-100); Basophils Percent Auto 0.4 % (0-2); Eosinophils Absolute Auto 100 /uL (0-450); Eosinophils Percent Auto 1.3 % (2-4); Hematocrit 41.4 % (41-53); Hemoglobin 14.6 g/dL (13.5-17.5); Lymphocytes Absolute Auto 900 /uL (1100-4500); Lymphocytes Percent Auto 14.2 % (25-40); Mean Corpuscular HGB Conc 35.2 % (30-36); Mean Corpuscular Hemoglobin 31.3 PG (26-34); Mean Corpuscular Volume 88.7 fL (80-100); Monocytes Absolute Auto 700 /uL (0-900); Monocytes Percent Auto 10.9 % (3-14); Neutrophils Absolute Auto 4500 /uL (1500-7000); Neutrophils Percent Auto 73.2 % (50-75); Platelet Count 132 X10^3/uL (150-400); Red Blood Cell Count 4.66 X10^6/uL (4.5-5.9); Red Cell Distribution Width 12.6 % (11.6-14.8); White Blood Cell Count 6.2 X10^3/uL (4.5-11.0)
[2020-12-17 07:58] LABS: Alanine Aminotransferase 17 IU/L (<50); Albumin 3.2 g/dL (3.5-5.0); Albumin Globulin Ratio 1.1 (1.0-2.8); Alkaline Phosphatase 69 U/L (38-126); Aspartate Aminotransferase 15 IU/L (17-59); Bilirubin Total 0.7 mg/dL (0.2-1.3); Bilirubin Unconjugated 0.6 mg/dL (0.0-1.1); Blood Urea Nitrogen 38 mg/dL (9-20); Calcium 8.6 mg/dL (8.4-10.2); Carbon Dioxide 20 mmol/L (22-32); Chloride 115 mmol/L (98-107); Estimated Glomerular Filt Rate 26.4 mL/min (>60); Glucose 238 mg/dL (70-100); HEMOLYSIS < 15 (0-50); Potassium 4.8 mmol/L (3.4-5.1); Sodium 140 mmol/L (137-145); Total Protein 6.2 g/dL (6.3-8.2)
[2020-12-17 07:59] LABS: Phosphorous 2.9 mg/dL (2.5-4.5)
[2020-12-17 08:00] VITALS: BP 128/78; PULSE 69; RESP 17; TEMP 36.6; O2SAT 98
[2020-12-17] MEDS: INSULIN LISPRO 100 UNIT/ML 3ML VIAL SUBCUT (08:13)
[2020-12-17 08:17] LABS: Magnesium 2.3 mg/dL (1.6-2.3)
--- NOTE | 2020-12-17 09:13 | CM.IDA ---
Addendum entered by VICTORINO Ladd 12/17/20 12:35: According to Shanice Agee, admission counselor, patient worried about Rx coverage for insulin. Patient is self pay at least until 01/10. Provided patient with information Shanice had secured re: help w/insulin : https://insulinhelp.org/ Original Note: Initial DCP Assessment Note Pt is a 55 yo male, resident of [facility], The patient is postop day 1. Status post cystoscopy and placement of right ureteral stent for obstruction and RENE. PCP: Brandt Park Payer: Self Pay According to Viji Agee, admitting: Patient makes approx $[phone] every other week before taxes, will not qualify for [place] but will qualify for some tax credits that would bring his monthly premiums to $0 starting 01/10/21. Patient will not have any insurance coverage for this stay, and will need to pay out of pocket if has any DC needs, malka application has been provided No needs expected from DC planning team, likely return home w/israel Morales, although will remain available in case this changes before medical DC. VICTORINO Ladd
--- NOTE | 2020-12-17 10:29 | P.DS_ITS ---
History of Present Illness History of Present Illness Chief complaint: gallbladder issues, sent by Narrative: Rocky Broderick: Baldemar Zabala is a 55 y.o. male with diabetes type 2 and essential hypertension presented to the emergency department with a complaint of right- sided abdominal pain. He was found to be in severe acute renal failure with a presenting creatinine of 10.1 and a GFR of 5.3. He was initially worked up with both thought that he had acute pancreatitis however his lipase was 146 and presley ging studies proved otherwise. The patient was found to have a 9 mm distal right ureterovesicular junction stone. Patient stated he had a history of having kidney stones but they passed. He denies having had a fever, he has had a little bit of diarrhea and generalized anorexia. He denies chest pain, dyspnea, he has been nauseous but no vomiting, he denies constipation, but does have chronic LE neuropathy. ED ordered a renal ultrasound and abdomen KUB. Renal ultrasound did identify the 9 mm ureterovesicular junction stone and the KUB was negative. Patient is afebrile, blood pressure 175/90, heart rate 71, respiratory rate 20, oxygen saturation 96% on room air in the weighs 224.2 kg. CBC is unremarkable except for a low platelet count of a 119 which appears to be chronic, sodium was 132, potassium 5.2, chloride 101, bicarb 16, BUN 94, creatinine 10.1, eGFR of 5.3, glucose 222, hemoglobin A1c is 10, liver enzymes and UA are within normal limits, COVID-19 PCR is negative. Discharge Providers Provider Date of admission: 12/15/20 20:38 Discharge Date: 12/17/20 Primary care physician: Brandt Park MD Consults: 12/15/20 20:13 Consult to Urology Stat Comment: Consulting Provider: Clair Vegas Reason for consultation: 9 mm R sided stone 12/15/20 21:57 Consult to Physician Routine Comment: Consulting Provider: Clair Vegas Reason for consultation: 9 mm ureteral calculi Has provider been notified: Yes Discharge provider: Dino Lopez MD Summary Hospital Course Discharge Diagnosis: 1. Acute renal failure secondary to obstructing stone on the right kidney, s/p stent placement 2. Diabetes, type 2 with hyperglycemia newly started on insulin 3. Hypertension 4. Obesity Hospital Course: Mr. Zabala was admitted with flank pain. He was found to have a an RENE with creatinine of 10.8. He had elevated potassium greater than 6. He was found to have an obstructing stone in his right urethra. He had stent placed by Dr. Vegas. On day of discharge his creatinine was improving markedly. He will be started on insulin as his a1c is greater than 10. He will hold his oral diabetes medications right now due to his creatinine. He should follow in urology clinic in 3-4 weeks and will likely need lithotripsy in the future Exam Vital Signs (past 8 hours): Oxygen Delivery Method Room Air Oxygen Flow Rate 0 Narrative Exam Narrative: Gen: no acute distress HEENT: moist mucous membranes Neck: no JVD, trachea is midline Resp: lungs clear bilaterally CV: regular rate and rhythm, no murmur Abd: obese, soft, non-tender, normal bowel sounds Skin: no lesions or rashes, dry and intact Objective Labs Result Diagrams: 12/17/20 07:36 12/17/20 07:36 [facility] Medical History Renal calculus Surgical History H/O lateral meniscus repair of left knee Liver laceration, major, with open wound into cavity Family History Father Diabetes mellitus Mother Lung cancer Social History household members: significant other Smoking Status: Never smoker Discharge Plan Discharge Plan Patient Disposition: Home Provider Discharge Comment: Mr. Zabala came in to the hospital with abdominal pain. He had a stone blocking his ureter. He had a stent placed and this improved. He had kidney injury which was improving after the stent was placed. He should hold taking his metformin until his kidneys return to normal. He should follow with Dr. Vegas in 3-4 weeks, and with his PCP in 1 week. Discharge orders & Medications Prescriptions: New Lantus Solostar U-100 Insulin 100 unit/mL (3 mL) Insulin Pen 20 unit SUBCUT BEDTIME Qty: 6 RF: 0 (DME) pen needle, diabetic [Lite Touch Insulin Pen [place]] 31 gauge x 5/16 needle See Rx Instructions .Route Qty: 1200 RF: 0 Continued Rybelsus 3 mg tablet 3 mg PO DAILY 30 Days Qty: 30 RF: 0 Discontinued metformin 1,000 mg Tablet 1,000 mg PO BID RF: 0 metformin 500 mg Tablet 500 mg PO DAILY RF: 0 Medication counseling provided by Pharmacist: Yes Pharmacist Comment: Confirmed patient has glucometer, test strips, and lancets at home. He is calling his new insurance now to determine copays for lantus vials vs. pens. Follow up/Referrals: Brandt Park MD [Primary Care Provider] - Clair Vegas MD [Physician] - (follow up after stent placed for R obstructing stone) Visit Report/Discharge Packet Instructions: DI for Cystoscopy, Insulin Glargine (rDNA origin) Injection, DI for Ureteral Stent Placement, Semaglutide Injection, DI for Acute Kidney Injury Discharge Data Primary Care Provider: Brandt Park Quality VTE Deep Vein Thrombosis/Pulmonary Embolism Present on Admission: No MIPS - DC The patient has current or prior documentation of left ventricular ejection fraction (LVEF) less than 40%, or moderate or severely depressed left ventricular systolic function.: No
--- NOTE | 2020-12-17 12:57 | PC.NURSE ---
Patient discharged home. Escorted out via wheelchair, accompanied by spouse. All discharge paperwork given to patient along with new medication script. Discharge education and instructions given to both patient and nurse, both verbalized understanding. Insulin pen training given, both verbalized understanding. Denied any further questions.
== END 2020-12-17 12:50 | disposition home or self-care (01) | DRG 694 ==
LOC: ED 20:18 → AC 20:39
PROVIDERS: Internal Medicine; Specialist; Admitting Provider Nurse Practitioner Family; Emergency Provider Emergency Medicine; PCP Family Medicine; Referring Provider Emergency Medicine; Visit Provider Nurse Practitioner Family
PROC: 0T9680Z Drainage of Right Ureter with Drainage Device, Via Natural or Artificial Opening Endoscopic (ICD-10-PCS; principal; 2020-12-16 12:00)
DX: N13.2 Hydronephrosis with renal and ureteral calculous obstruction (principal); N17.9 Acute kidney failure, unspecified; E11.9 Type 2 diabetes mellitus without complications; I10 Essential (primary) hypertension; Z20.822 Contact with and (suspected) exposure to COVID-19; Z87.442 Personal history of urinary calculi
CPT/HCPCS: 36415; 51702; 52330; 52332; 74018; 74176; 76000; 76705; 76770; 80048; 80053; 80076; 81003; 81015; 82570; 82962; 83036; 83690; 83735; 84100; 84300; 85025; 87635; 93005; 94640; 96361; 96372; 96374; 96375; 96376; 99222; 99285; C1771; C9803; J0610; J0690; J1170; J1815; J2405; J2704; J3010; J7613

== ENCOUNTER → 2020-12-21 08:41 | Outpatient (CLI) | payer SELFPAY ==
[2020-12-16 20:56] VITALS: BMI 38.7
[2020-12-21 19:33] LABS: BUN Creatinine Ratio 20.5 (6-22); Blood Urea Nitrogen 24 mg/dL (9-20); Calcium 9.6 mg/dL (8.4-10.2); Carbon Dioxide 24 mmol/L (22-32); Chloride 103 mmol/L (98-107); Estimated Glomerular Filt Rate > 60.0 mL/min (>60); Glucose 290 mg/dL (70-100); HEMOLYSIS < 15 (0-50); Potassium 4.9 mmol/L (3.4-5.1); Sodium 135 mmol/L (137-145)
== END ==
PROVIDERS: PCP Family Medicine; Visit Provider Family Medicine
DX: E11.65 Type 2 diabetes mellitus with hyperglycemia (principal); N17.9 Acute kidney failure, unspecified; N20.1 Calculus of ureter
CPT/HCPCS: 80048

== ENCOUNTER → 2021-01-15 10:07 | Outpatient (CLI) | payer OTHER, SELFPAY ==
[2020-12-16 20:56] VITALS: BMI 38.7
[2021-01-15 19:32] LABS: COVID19 - ORCAS (NP or Nasal) Negative (Negative)
== END ==
PROVIDERS: PCP Family Medicine; Referring Provider Family Medicine; Visit Provider Family Medicine
DX: Z20.822 Contact with and (suspected) exposure to COVID-19 (principal)
CPT/HCPCS: U0003

== ENCOUNTER 2021-01-18 06:06 | Day surgery (SDC) | payer OTHER, SELFPAY ==
[2020-12-16 20:56] VITALS: BMI 38.7
[2020-12-23 07:38] VITALS: BMI 37.9
[2021-01-18] VITALS (8 sets, daily range): BP systolic 104–125; BP diastolic 69–76; PULSE 56–67; RESP 12–16; TEMP 36.1–36.9; O2SAT 93–97; BMI 37.2
--- NOTE | 2021-01-18 | DI.RAD.S_ITS ---
PROCEDURE: XR ABDOMEN MIN 2V INDICATIONS: RIGHT PYLOGRAM TECHNIQUE: 2 intraoperative views of the abdomen were acquired. COMPARISON: [facility], CT, CT ABDOMEN PELVIS WO CON, 12/16/2020, 7:32. FINDINGS: Two views of the right kidney demonstrate retrograde contrast and wire within the renal collecting system. Right kidney hydronephrosis. IMPRESSION: Intraoperative guidance provided. Dictated by: Slick Ram M.D. on 01/18/2021 at 9:13 Approved by: Slick Ram M.D. on 01/18/2021 at 9:15
--- NOTE | 2021-01-18 07:27 | PM.PREOP ---
Pre-operative Note Interval Note History & Physical reviewed/Exam performed by Physician: Yes Changes to H&P: No
--- NOTE | 2021-01-18 07:39 | P.HP_ITS ---
History of Present Illness History of Present Illness Date Patient Seen: 01/18/21 Time Patient Seen: 07:39 Chief complaint: SDC Narrative: Patient is a 56-year-old white male with history of multiple and recurrent nephrolithiasis presenting today for scheduled right ureteroscopic laser lithotripsy and right ureteral stent exchange. He presented on 12/15/2020 to [facility] ED with a 2 day complaint of right upper quadrant pain. Imaging studies identified an obstructing 9 mm right distal ureteral calculus in the setting of acute renal failure. Creatinine at that time was 10.1. He was taken the operating room urgently on 12/16/2020 underwent uncomplicated placement of right ureteral stent. He now returns today for definitive treatment of the offending right distal ureteral calculus. Patient History Medical History DMII (diabetes mellitus, type 2) History of migraine Renal calculus Surgical History H/O lateral meniscus repair of left knee Hx of cystoscopy (12/15/20) Liver laceration, major, with open wound into cavity Family & Social History Family History Father Diabetes mellitus Mother Lung cancer Social History: household members significant other Tobacco & Substance use: Smoking Status Never smoker alcohol intake former alcohol intake frequency a few times a week Substance Use Type marijuana Meds Home Medications and Allergies Home Medications Medication Instructions Recorded Confirmed Type pen needle, diabetic 31 gauge x #270 ea 01/12/21 Rx 5/16 (Lite Touch Insulin Pen [place]) insulin glargine 100 unit/mL (3 20 unit SUBCUT BEDTIME #6 ml 01/13/21 01/18/21 Rx mL) subcutaneous pen (Lantus Solostar U-100 Insulin) metformin 500 mg tablet 500 mg PO BID 01/18/21 01/18/21 History Allergies Allergy/AdvReac Type Severity Reaction Status Date / Time ibuprofen Allergy Severe Swelling Verified 01/18/21 07:17 of Lip/Tongue/Throat povidone-iodine Allergy Severe Blister Verified 01/18/21 07:17 [From Betadine] soap [From Betadine] Allergy Severe Blister Verified 01/18/21 07:17 Review of Systems Review of Systems ROS: Yes All systems reviewed with the patient and are negative except as otherwise documented Exam Vital Signs (past 8 hours): - 01/18/21 07:12 Temperature 98.5 F Pulse Rate 64 Respiratory Rate 15 Blood Pressure 125/75 Pulse Oximetry 97 Oxygen Delivery Method Room Air Narrative Exam Narrative: He is a well-developed and moderately over nourished male in no acute distress Head/neck-sclera clear pupils are round and equal bilaterally. No visible evidence of adenopathy JVD. Chest-equal, clear, and unlabored expansion bilaterally. Heart-normal sinus rhythm. Assessment & Plan Assessment & Plan narrative: Assessment: 1. Obstructing 9 mm right distal ureteral calculus. 2. Retained right ureteral stent. 3. History of recurrent nephrolithiasis. Plan: 1. Proceed with scheduled cystoscopy/right ureteroscopic laser lithotripsy/right ureteral stent exchange.
[2021-01-18] MEDS: INSULIN REGULAR 100 UNIT/ML 3 ML VIAL SUBCUT (07:43)
[2021-01-18] MEDS: LACTATED RINGERS 1,000 ML 42 ML IV (07:44)
[2021-01-18] MEDS: CEFAZOLIN VIAL 3 GM in SODIUM CHLORIDE 0.9% 100 ML 200 ML IV (07:58)
--- NOTE | 2021-01-18 08:28 | SUR.OPER ---
Lithotomy on padded OR bed, head on pillow, arms secured on padded arm boards at <90 degrees abduction. Legs secured in padded yellow fins stirrups.
[2021-01-18] MEDS: IOPAMIDOL 15 ML VIAL INJ (08:33)
--- NOTE | 2021-01-18 08:43 | PM.OP.1 ---
Operative Date/Time/Diagnoses Date of procedure: 01/18/21 Time of procedure: 08:43 Pre-op diagnosis: 1. 9 mm obstructing right distal ureteral calculus. 2. Retained right ureteral stent. 3. History recurrent nephrolithiasis. Post-op diagnosis: same Procedure & Clinicians Procedure: 1. Cystoscopy and right ureteral stent removal. 2. Cystoscopy and right retrograde pyelogram. 3. Cystoscopy and right ureteroscopy. Same procedure as scheduled: No (Apparent interval passage of index stone.) Indications: 1. 9 mm obstructing right distal ureteral calculus 2. Retained right ureteral stent. 3. History of acute kidney injury. Surgeon: Clair Vegas Click Yes if Unassisted: Yes Anesthesia Type: General Operative Notes Findings: 1. Urethra-normal caliber without annular stricture or lesion. 2. External sphincter coapted with normal overlying urothelium. 3. Prostate-3.5 cm length with mild lateral lobe hyperplasia and moderately elevated median bar. 4. Bladder-trace to 1+ trabeculation. Normal left ureteral orifice. The right ureteral orifice has intact right stent with surrounding mild edema and erythema. 5. Right ureter-no evidence of stone endoscopically or radiographically on retrograde pyelogram. No evidence of mucosal erosion or trauma indicating recent presence of the stone. Closure Type: not applicable Specimen(s): none sent Estimated Blood Loss (mL): 0 Procedure in detail: Patient was positioned supine was administered general anesthesia. He was then repositioned semi lithotomy and the lower abdomen, genitalia, and groin were then prepped and draped in sterile fashion. A 22 Spanish panendoscope was then passed lower urinary tract with the findings as described above. A foreign body grasper was then passed through the working port of the panendoscope in the distal end of the stent was engaged and withdrawn and brought out just distal to the urethral meatus. A 0 point 4 5 hybrid guidewire was then selected and advanced through the lumen of the indwelling stent under direct and fluoroscopic guidance. The stent was then backloaded off the wire and discarded. The wire was secured to the drape. The semi rigid ureteral scope was introduced lower urinary tract and then passed it into the right ureteral orifice and advanced proximally to a point in the very proximal right ureter no evidence of stone in the findings as described above. Right retrograde pyelogram was then performed with findings of no suspicious filling defect, calculus, or impairment of drainage following contrast installation. The ureteral scope was then removed. The panendoscope was reintroduced and a final inspection of the bladder was made rule out presence of the stone. No stone was identified. The bladder was drained completely and all instrumentation was removed. The patient was then repositioned in supine, was awakened, and transported to recovery in stable condition. Complications: none Post-operative Condition: stable Disposition: PACU Plan for aftercare: Discharge home
--- NOTE | 2021-01-18 09:07 | SUR.OPER ---
Upper partial denture placed in labeled green denture cup and given to Vanessa Pre-op RN to place in patient belonging bag.
== END 2021-01-18 10:05 | disposition home or self-care (01) ==
PROVIDERS: PCP Family Medicine; Referring Provider Family Medicine; Visit Provider Specialist
PROC: (CPT 52351; principal; 2021-01-18 07:45)
DX: Z87.442 Personal history of urinary calculi (principal); E11.9 Type 2 diabetes mellitus without complications; Z79.4 Long term (current) use of insulin
CPT/HCPCS: 52351; 74019; 76000; 82962; J0690; J2405; J3010

== ENCOUNTER → 2021-11-03 13:46 | Outpatient (CLI) | payer OTHER, SELFPAY ==
[2020-12-16 20:56] VITALS: BMI 38.7
[2021-11-03 19:27] LABS: Alanine Aminotransferase 31 IU/L (<50); Albumin 4.3 g/dL (3.5-5.0); Albumin Globulin Ratio 1.3 (1.0-2.8); Alkaline Phosphatase 102 U/L (38-126); Aspartate Aminotransferase 41 IU/L (17-59); BUN Creatinine Ratio 22.6 (6-22); Bilirubin Total 0.8 mg/dL (0.2-1.3); Blood Urea Nitrogen 26 mg/dL (9-20); Calcium 9.3 mg/dL (8.4-10.2); Carbon Dioxide 19 mmol/L (22-32); Chloride 105 mmol/L (98-107); Estimated Glomerular Filt Rate > 60 mL/min (>60); Globulin 3.4 g/dL (1.7-4.1); Glucose 422 mg/dL (70-100); HEMOLYSIS 27 (0-50); Potassium 4.4 mmol/L (3.4-5.1); Sodium 136 mmol/L (137-145); Total Protein 7.7 g/dL (6.3-8.2); Uric Acid 3.5 mg/dL (3.5-8.5)
[2021-11-03 19:28] LABS: Appearance Urine UA CLEAR; Bilirubin Urine UA NEGATIVE (NEGATIVE); Cholesterol 217 mg/dL (140-199); Color Urine UA YELLOW; Glucose Urine UA 2+ g/dL (Negative); HDL Cholesterol 24 mg/dL (40-60); Ketones Urine UA NEGATIVE (NEGATIVE); Leukocyte Esterase Urine UA NEGATIVE (NEGATIVE); Nitrite Urine UA NEGATIVE (Negative); Occult Blood Urine UA NEGATIVE (Negative); Protein Urine UA NEGATIVE (Negative); Urobilinogen Urine UA 0.2 E.U./dL (0.2)
[2021-11-03 19:30] LABS: Hemoglobin A1C% w Est Avg Glu 13.4 % (4.0-6.0)
[2021-11-03 19:37] LABS: Triglycerides 605 mg/dL (35-150)
[2021-11-03 19:43] LABS: Basophils Absolute Auto 0 /uL (0-100); Basophils Percent Auto 0.7 % (0-2); Eosinophils Absolute Auto 100 /uL (0-450); Eosinophils Percent Auto 1.1 % (2-4); Hematocrit 47.8 % (41-53); Hemoglobin 17.4 g/dL (13.5-17.5); Lymphocytes Absolute Auto 1300 /uL (1100-4500); Lymphocytes Percent Auto 19.7 % (25-40); Mean Corpuscular HGB Conc 36.4 % (30-36); Mean Corpuscular Hemoglobin 31.9 PG (26-34); Mean Corpuscular Volume 87.7 fL (80-100); Monocytes Absolute Auto 400 /uL (0-900); Monocytes Percent Auto 6.1 % (3-14); Neutrophils Absolute Auto 4900 /uL (1500-7000); Neutrophils Percent Auto 72.4 % (50-75); Platelet Count 130 X10^3/uL (150-400); Red Blood Cell Count 5.45 X10^6/uL (4.5-5.9); Red Cell Distribution Width 12.9 % (11.6-14.8); White Blood Cell Count 6.8 X10^3/uL (4.5-11.0)
[2021-11-03 19:45] LABS: Bacteria Urine None Seen; Culture Indicated Urine Cult Not Indicated; RBC Urine None Seen (0-5/HPF); Squamous Epithelial Cell Urine 0-1 /HPF (0-5/HPF); WBC Urine 0-1/HPF (0-5/HPF)
[2021-11-03 19:56] LABS: TSH w/ Reflex to FT4 0.96 uIU/mL (0.47-4.68)
[2021-11-03 20:06] LABS: Add Manual Diff / Slide Review SLIDE REVIEW
== END ==
PROVIDERS: PCP Physician Assistant Medical; Visit Provider Physician Assistant Medical
DX: E11.65 Type 2 diabetes mellitus with hyperglycemia (principal); E66.9 Obesity, unspecified; N17.9 Acute kidney failure, unspecified; N20.1 Calculus of ureter
CPT/HCPCS: 80053; 80061; 81001; 83036; 84443; 84550; 85025

== ENCOUNTER → 2021-12-17 08:05 | Outpatient (CLI) | payer OTHER, SELFPAY ==
[2020-12-16 20:56] VITALS: BMI 38.7
[2021-12-17 18:41] LABS: Alanine Aminotransferase 24 IU/L (<50); Albumin 3.7 g/dL (3.5-5.0); Albumin Globulin Ratio 1.4 (1.0-2.8); Alkaline Phosphatase 69 U/L (38-126); Aspartate Aminotransferase 22 IU/L (17-59); BUN Creatinine Ratio 23.1 (6-22); Bilirubin Total 0.9 mg/dL (0.2-1.3); Blood Urea Nitrogen 25 mg/dL (9-20); Carbon Dioxide 25 mmol/L (22-32); Chloride 104 mmol/L (98-107); Cholesterol 143 mg/dL (140-199); Estimated Glomerular Filt Rate > 60 mL/min (>60); Globulin 2.7 g/dL (1.7-4.1); Glucose 300 mg/dL (70-100); HDL Cholesterol 27 mg/dL (40-60); HEMOLYSIS < 15 (0-50); LDL Cholesterol Calculated 90 mg/dL (<100); Potassium 4.5 mmol/L (3.4-5.1); Sodium 136 mmol/L (137-145); Total Protein 6.4 g/dL (6.3-8.2); Triglycerides 132 mg/dL (35-150)
[2021-12-17 19:59] LABS: Hemoglobin A1C% w Est Avg Glu 11.9 % (4.0-6.0)
== END ==
PROVIDERS: PCP Physician Assistant Medical; Visit Provider Physician Assistant Medical
DX: E11.65 Type 2 diabetes mellitus with hyperglycemia (principal); E66.9 Obesity, unspecified; E78.5 Hyperlipidemia, unspecified; N17.9 Acute kidney failure, unspecified
CPT/HCPCS: 80053; 80061; 83036

== ENCOUNTER → 2021-12-20 08:38 | Outpatient (CLI) | payer OTHER, SELFPAY ==
[2020-12-16 20:56] VITALS: BMI 38.7
[2021-12-22 07:39] LABS: Fecal Immunochemical Test Negative (Negative)
== END ==
PROVIDERS: PCP Physician Assistant Medical; Visit Provider Physician Assistant Medical
DX: E11.65 Type 2 diabetes mellitus with hyperglycemia (principal); E66.9 Obesity, unspecified; N17.9 Acute kidney failure, unspecified; N20.1 Calculus of ureter
CPT/HCPCS: 82274

== ENCOUNTER → 2021-12-29 13:49 | Outpatient (CLI) | payer OTHER, SELFPAY ==
[2020-12-16 20:56] VITALS: BMI 38.7
[2021-12-29 21:02] LABS: Prostate Specific Antigen 0.548 ng/mL (0.10-4.00)
== END ==
PROVIDERS: PCP Physician Assistant Medical; Visit Provider Specialist
DX: R97.20 Elevated prostate specific antigen [PSA] (principal)
CPT/HCPCS: 84153

== ENCOUNTER → 2022-02-17 13:11 | Outpatient (CLI) | payer OTHER, SELFPAY ==
[2020-12-16 20:56] VITALS: BMI 38.7
[2022-02-17 20:23] LABS: Calcium 9.1 mg/dL (8.4-10.2); Uric Acid 3.1 mg/dL (3.5-8.5)
[2022-02-19 08:09] LABS: Calcium 9.3 mg/dL (8.7-10.2); Parathyroid Hormone, Intact 21 pg/mL (15-65)
== END ==
PROVIDERS: PCP Physician Assistant Medical; Visit Provider Specialist
DX: N17.9 Acute kidney failure, unspecified (principal); N20.0 Calculus of kidney; N20.1 Calculus of ureter
CPT/HCPCS: 82310; 83970; 84550

== ENCOUNTER → 2022-06-09 08:59 | Outpatient (CLI) | payer OTHER, SELFPAY ==
[2020-12-16 20:56] VITALS: BMI 38.7
[2022-06-09 19:51] LABS: Alanine Aminotransferase 25 IU/L (<50); Albumin 3.9 g/dL (3.5-5.0); Albumin Globulin Ratio 1.3 (1.0-2.8); Alkaline Phosphatase 67 U/L (38-126); Aspartate Aminotransferase 18 IU/L (17-59); BUN Creatinine Ratio 15.8 (6-22); Bilirubin Total 0.7 mg/dL (0.2-1.3); Blood Urea Nitrogen 18 mg/dL (9-20); Calcium 9.1 mg/dL (8.4-10.2); Carbon Dioxide 22 mmol/L (22-32); Chloride 106 mmol/L (98-107); Estimated Glomerular Filt Rate > 60 mL/min (>60); Globulin 3.1 g/dL (1.7-4.1); Glucose 196 mg/dL (70-100); HEMOLYSIS < 15 (0-50); Potassium 4.7 mmol/L (3.4-5.1); Sodium 138 mmol/L (137-145)
== END ==
PROVIDERS: PCP Physician Assistant; Visit Provider Physician Assistant
DX: E11.65 Type 2 diabetes mellitus with hyperglycemia (principal); I10 Essential (primary) hypertension
CPT/HCPCS: 80053

== ENCOUNTER → 2022-10-25 09:35 | Outpatient (CLI) | payer OTHER, SELFPAY ==
[2020-12-16 20:56] VITALS: BMI 38.7
[2022-10-25 20:26] LABS: Cholesterol 104 mg/dL (140-199); HDL Cholesterol 26 mg/dL (40-60); LDL Cholesterol Calculated 57 mg/dL (<100); Triglycerides 103 mg/dL (35-150)
[2022-10-25 20:57] LABS: Prostate Specific Antigen Scrn 0.424 ng/mL (0.1-4.0)
[2022-10-26 23:01] LABS: x Labcorp Estim. Avg Glu (eAG) 192 mg/dL (.); x Labcorp Hemoglobin A1c 8.3 % (4.8-5.6)
== END ==
PROVIDERS: PCP Physician Assistant; Visit Provider Physician Assistant
DX: E11.65 Type 2 diabetes mellitus with hyperglycemia (principal); I10 Essential (primary) hypertension; Z12.5 Encounter for screening for malignant neoplasm of prostate
CPT/HCPCS: 80061; 83036; G0103

== ENCOUNTER → 2023-01-19 10:58 | Outpatient (CLI) | payer OTHER, SELFPAY ==
[2020-12-16 20:56] VITALS: BMI 38.7
[2023-01-21 04:12] LABS: Labcorp Hemoglobin (Hb) A1c 10.3 % (4.8-5.6)
== END ==
PROVIDERS: PCP Physician Assistant; Visit Provider Physician Assistant
DX: E11.65 Type 2 diabetes mellitus with hyperglycemia (principal)
CPT/HCPCS: 83036

== ENCOUNTER 2023-03-09 11:28 | Emergency (ER) | payer OTHER, SELFPAY ==
[2020-12-16 20:56] VITALS: BMI 38.7
[2023-03-09] VITALS (7 sets, daily range): BP systolic 131–180; BP diastolic 66–87; PULSE 60–71; RESP 18; TEMP 36.8; O2SAT 96–100; BMI 27.3
--- NOTE | 2023-03-09 11:38 | DI.CT.S_ITS ---
PROCEDURE: CT ABDOMEN PELVIS WO CON INDICATIONS: L FLANK PAIN, HX STONES TECHNIQUE: Axial sections were acquired from the lung bases to the pubic symphysis. Coronal and sagittal reformats were performed. For radiation dose reduction, the following was used: automated exposure control, adjustment of mA and/or kV according to patient size. COMPARISON: [facility], CT, CT ABDOMEN PELVIS WO CON, 12/16/2020, 7:32. FINDINGS: Image quality: Excellent. Lung bases: Unremarkable. Heart: No significant findings. URINARY: Right Kidney: Right kidney is normal in size. Multiple simple renal cysts are present, the largest measures up to 8.2 cm in axial dimension. No renal calculus or hydronephrosis. Right Ureter: No hydroureter. Left Kidney: Left kidney is markedly atrophic. Multiple simple left renal cysts are present. No hydronephrosis. No renal calculus. Left Ureter: No hydroureter. Bladder: Bladder wall thickening may be related to decompression, which compromises evaluation of the bladder. No bladder calculus. ABDOMEN: Liver: Liver is hypoattenuating, consistent with fatty infiltration. Gallbladder: Unremarkable. Biliary ducts: Unremarkable. Pancreas: Unremarkable. Spleen: Unremarkable. Adrenal Glands: Unremarkable. Stomach and Bowel: Multiple diverticula are seen in the colon without signs of acute diverticulitis. Normal appendix. Small bowel loops and stomach are unremarkable. Peritoneum: No abnormal intraperitoneal fluid. No free air. Ventral Wall: Tiny fat containing periumbilical hernia. Abdominal Nodes: No enlarged retroperitoneal or mesenteric lymph nodes. Vessels: Aorta and inferior vena cava are normal in size. PELVIS: Pelvic Organs: Unremarkable. Pelvic Nodes: Unremarkable. Miscellaneous: No inguinal hernias are seen. Bones: Unremarkable. IMPRESSION: 1. No renal or ureteral calculus or hydronephrosis. No source of left flank pain identified. 2. Chronic left renal atrophy. Bilateral simple renal cysts. 3. Bladder wall thickening may be secondary to underdistention or cystitis. Recommend clinical correlation. 4. Colonic diverticulosis without signs of acute diverticulitis. 5. Diffuse hepatic steatosis. Approved by: Jaime Ozuna M.D. on 03/09/2023 at 12:23
--- NOTE | 2023-03-09 11:46 | ED.MALEGU ---
HPI - Male Genitourinary General Chief complaint: Abdominal Pain Stated complaint: kidney problems T-1 getting worse Time Seen by Provider: 03/09/23 11:32 Source: patient Mode of arrival: Ambulatory History of Present Illness HPI Narrative: 58-year-old male with history of insulin-dependent diabetes, hypertension, hyperlipidemia presents by private vehicle from home for left-sided flank pain. Patient reports history of kidney stones requiring intervention by Urology and states this feels similar. No medications taken at home for symptoms. Related Data Previous Rx's Medication Instructions Recorded pen needle, diabetic 31 gauge x #270 ea 03/16/2210/25 (Lite Touch Insulin Pen Dalton) lisinopril 10 mg tablet 10 mg PO DAILY #90 tabs 05/12/22 metformin 1,000 mg tablet 1,000 mg PO BID #180 tabs 12/15/22 insulin glargine-yfgn 100 unit/mL 32 unit (0.32 mL) SUBCUT BID #90 12/20/22 subcutaneous solution days atorvastatin 20 mg tablet 20 mg PO DAILY #90 tabs 01/04/23 potassium citrate 15 mEq (1,620 30 meq PO BID #360 tabs 01/12/23 mg) tablet,extended release dapagliflozin propanediol 10 mg 10 mg PO QAM #30 tabs 01/31/23 tablet (Farxiga) flash glucose sensor (FreeStyle #1 ea 02/01/23 Domenico 2 Sensor kit) methocarbamol 750 mg tablet 750 mg PO TID #30 tabs 03/09/23 Allergies Allergy/AdvReac Type Severity Reaction Status Date / Time ibuprofen Allergy Severe Swelling Verified 03/09/23 11:38 of Lip/Tongue/Throat povidone-iodine Allergy Severe Blister Verified 03/09/23 11:38 [From Betadine] soap [From Betadine] Allergy Severe Blister Verified 03/09/23 11:38 Review of Systems Review of Systems Narrative: CONSTITUTIONAL- Denies: fever, chills, fatigue HEENT- Denies: sore throat, nosebleed, vision changes RESPIRATORY- Denies: shortness of breath, cough, wheezing CARDIAC- Denies: chest pain, edema, orthopnea GI- Denies: abdominal pain, nausea, vomiting, constipation, diarrhea -reports: Flank pain, left Denies: frequency, dysuria, hematuria MSK- Denies: extremity pain, extremity swelling, joint pain, joint swelling SKIN- Denies: rash, itching, burn, swelling NEUROLOGICAL- Denies: headache, numbness, weakness, dizziness PSYCHIATRIC- Denies: anxiety, depression, suicidal ideation, homicidal ideation Patient History Medical History DMII (diabetes mellitus, type 2) (~2007) Hepatitis (~1990) History of migraine History of nephrolithiasis Renal calculus Surgical History Anesthesia H/O lateral meniscus repair of left knee Hx of cystoscopy (12/15/20) Liver laceration, major, with open wound into cavity Family History Father Diabetes mellitus Mother Lung cancer Social History household members: significant other Smoking Status: Never smoker alcohol intake: former Smoking Status: Never smoker alcohol intake frequency: a few times a week Alcohol type: beer Substance Use Type: marijuana Exam Initial Vital Signs Initial Vital Signs: Vital Signs Temperature 98.3 F 03/09/23 11:38 Pulse Rate 71 03/09/23 11:38 Respiratory Rate 18 03/09/23 11:38 Blood Pressure 180/87 H 03/09/23 11:38 Pulse Oximetry 98 03/09/23 11:38 Oxygen Delivery Method Room Air 03/09/23 11:38 Const: Awake, alert, no acute distress, nontoxic appearing Eyes: PERRL, EOMI, conjunctiva normal ENT: Atraumatic, dentition normal, mucous membranes moist Cardiac: regular rate, regular rhythm RESP: unlabored, clear bilaterally, no wheezing GI: Atraumatic, soft, nontender, nondistended, no rebound, no guarding MSK: Atraumatic, full range of motion, pulses equal Back: No midline vertebral tenderness, left-sided CVA tenderness to percussion Skin: Warm, Dry, intact, no rashes Neuro: AO x3, CN II-XII grossly intact, moves all extremities Psych: affect normal, mood normal, not suicidal, not homicidal Course Course Course Narrative: Well-appearing patient presenting for flank pain. Hemodynamically stable, no acute distress. Reports allergy to ibuprofen, we will give morphine and will order labs and CT imaging. Orders Ordered: ED Orders 03/09/23 11:38 CT abdomen pelvis wo con Stat 03/09/23 11:45 CBC Auto Diff [Complete Blood Count AUTO DIFF] Stat CMP [Comprehensive Metabolic Panel] Stat UA Complete [Urinalysis and Microscopic] Stat Discontinued Medications Cyclobenzaprine HCl (Cyclobenzaprine 10 Mg Tablet) 10 mg PO NOW ONE Stop: 03/09/23 13:27 Last Admin: 03/09/23 13:37 Dose: 10 mg Documented By: MELQUIADES Sodium Chloride (Normal Saline 0.9%) 1,000 mls @ 1,000 mls/hr IV BOLUS ONE Stop: 03/09/23 12:37 Last Infusion: 03/09/23 12:58 Dose: 0 mls/hr Documented By: Admin: 03/09/23 11:55 Dose: 1,000 mls/hr Documented By: NUNO Lidocaine (Lidocaine Patch 1 Each Adh..Patch) 1 each TOP NOW ONE Stop: 03/09/23 13:27 Last Admin: 03/09/23 13:39 Dose: 1 each Documented By: MELQUIADES Morphine Sulfate (Morphine 4 Mg/Ml Inj) 4 mg IV NOW ONE Stop: 03/09/23 11:39 Last Admin: 03/09/23 11:49 Dose: 4 mg Documented By: NUNO Ondansetron HCl (Ondansetron 4 Mg/2 Ml Inj) 4 mg IV NOW ONE Stop: 03/09/23 11:39 Last Admin: 03/09/23 11:49 Dose: 4 mg Documented By: NUNO Reevaluation(s) Reevaluation #1: Laboratory work is unremarkable. Patient's renal function is intact. Patient has 1+ glucosuria, however no evidence of infection or hematuria. CT shows left renal atrophy that is thought to be chronic. No evidence of stone or other acute intra-abdominal pelvic pathology. Question if this is musculoskeletal in etiology. Patient informed of all labs and imaging results at bedside. I advised him of his left renal atrophy, however reassured him that his kidney function was normal today. He was counseled to follow up with primary care physician for further treatment. Counseled to take Tylenol as needed for pain and will add muscle relaxers and lidocaine patches. ED return precautions discussed at bedside. Patient expressed understanding of the plan and is in agreement at this time. All questions answered at the time of discharge. Vital Signs Vital signs: Vital Signs - 8 hr 03/09/23 11:38 03/09/23 11:50 03/09/23 12:00 Temperature 98.3 F Pulse Rate 71 67 Respiratory Rate 18 Blood Pressure 180/87 H 131/74 Pulse Oximetry 98 100 Oxygen Delivery Method Room Air 03/09/23 12:00 03/09/23 12:30 03/09/23 12:30 Temperature Pulse Rate 65 65 Respiratory Rate Blood Pressure 131/73 Pulse Oximetry 98 97 Oxygen Delivery Method 03/09/23 13:00 03/09/23 13:01 03/09/23 13:01 Temperature Pulse Rate 70 60 Respiratory Rate Blood Pressure 134/72 Pulse Oximetry 98 96 Oxygen Delivery Method 03/09/23 13:30 03/09/23 13:30 Temperature Pulse Rate 62 Respiratory Rate Blood Pressure 137/66 Pulse Oximetry 97 Oxygen Delivery Method MDM - Male Genitourinary Lab Data 03/09/23 11:45 03/09/23 11:45 Labs: Lab Results 03/09/23 03/09/23 03/09/23 Range/Units 11:45 11:45 11:45 WBC 8.0 (4.5-11.0) X10^3/uL RBC 5.51 (4.5-5.9) X10^6/uL Hgb 16.6 (13.5-17.5) g/dL Hct 47.3 (41-53) % MCV 85.9 (80-100) fL MCH 30.2 (26-34) PG MCHC 35.1 (30-36) % RDW 13.0 (11.6-14.8) % Plt Count 153 (150-400) X10^3/uL Neut % (Auto) 80.4 H (50-75) % Lymph % (Auto) 13.8 L (25-40) % Searcy % (Auto) 4.8 (3-14) % Eos % (Auto) 0.4 L (2-4) % Baso % (Auto) 0.6 (0-2) % Neut # (Auto) 6500 (2179-0725) /uL Lymph # (Auto) 1100 (5351-6800) /uL [place] # (Auto) 400 (0-900) /uL Eos # (Auto) 0 (0-450) /uL Baso # (Auto) 0 (0-100) /uL Sodium 136 L (137-145) mmol/L Potassium 4.5 (3.4-5.1) mmol/L Chloride 102 (98-107) mmol/L Carbon Dioxide 23 (22-32) mmol/L BUN 23 H (9-20) mg/dL Creatinine 1.14 (0.66-1.25) mg/dL Estimated GFR > 60 (>60) mL/min BUN/Creatinine Ratio 20.2 (6-22) Glucose 138 H (80-110) mg/dL Calcium 9.5 (8.4-10.2) mg/dL Total Bilirubin 0.6 (0.2-1.3) mg/dL AST 24 (17-59) IU/L ALT 30 (<50) IU/L Alkaline Phosphatase 74 (38-126) U/L Total Protein 8.2 (6.3-8.2) g/dL Albumin 4.4 (3.5-5.0) g/dL Globulin 3.8 (1.7-4.1) g/dL Albumin/Globulin Ratio 1.2 (1.0-2.8) Urine Color Yellow Urine Appearance Clear Urine pH 7.0 (4.5-8.0) Ur Specific Whipple 1.010 (1.000-1.035) Urine Protein Negative (Negative) Urine Glucose (UA) 1+ H (Negative) g/dL Urine Ketones Negative (NEGATIVE) Urine Occult Blood Negative (Negative) Urine Nitrate Negative (Negative) Urine Bilirubin Negative (NEGATIVE) Urine Urobilinogen 1.0 (0.2) E.U./dL Ur Leukocyte Esterase Negative (NEGATIVE) Urine RBC None seen (0-5/HPF) Urine WBC 0-1/hpf (0-5/HPF) Ur Squamous Epith Cells 1-5 /hpf (0-5/HPF) Urine Bacteria None seen (None) Ur Culture Indicated? Cult not indicated Discharge Plan Departure Patient Disposition: Home Clinical Impression: Acute flank pain, Atrophy of left kidney Instructions: DI for Flank Pain Prescriptions: New methocarbamol 750 mg tablet 750 mg PO TID Qty: 30 0RF No Action (DME) pen needle, diabetic [Lite Touch Insulin Pen Dalton] 31 gauge x 5/16 needle See Rx Instructions .Route Qty: 270 0RF Rx Instructions: Can use needle up to 3 times a day for insulin use lisinopril 10 mg tablet 10 mg PO DAILY Qty: 90 3RF metformin 1,000 mg tablet 1,000 mg PO BID Qty: 180 3RF Rx Instructions: Take with food insulin glargine-yfgn 100 unit/mL solution 32 unit SUBCUT BID Qty: 90 1RF Rx Instructions: Please take 32 units of glargine subcutaneously, twice a day. Please include needles. Thank you atorvastatin 20 mg tablet 20 mg PO DAILY Qty: 90 3RF Farxiga 10 mg tablet 10 mg PO QAM Qty: 30 11RF (DME) FreeStyle Domenico 2 Sensor Kit See Rx Instructions .Route Qty: 1 0RF Rx Instructions: As directed potassium citrate 15 mEq tablet extended release 30 meq PO BID Qty: 360 3RF Referrals: Latrice Gusman PA-C [Primary Care Provider] - Stand Alone Forms: Patient Portal/API
[2023-03-09] MEDS: ONDANSETRON 4 MG/2 ML INJ IV (11:49)
[2023-03-09] MEDS: MORPHINE 4 MG/ML INJ IV (11:49)
[2023-03-09 11:54] LABS: Appearance Urine UA CLEAR; Bilirubin Urine UA NEGATIVE (NEGATIVE); Color Urine UA YELLOW; Glucose Urine UA 1+ g/dL (Negative); Ketones Urine UA NEGATIVE (NEGATIVE); Leukocyte Esterase Urine UA NEGATIVE (NEGATIVE); Nitrite Urine UA NEGATIVE (Negative); Occult Blood Urine UA NEGATIVE (Negative); Protein Urine UA NEGATIVE (Negative)
[2023-03-09] MEDS: SODIUM CHLORIDE 0.9% 1,000 ML 1000 ML IV (11:55)
[2023-03-09 12:05] LABS: Alanine Aminotransferase 30 IU/L (<50); Albumin 4.4 g/dL (3.5-5.0); Albumin Globulin Ratio 1.2 (1.0-2.8); Alkaline Phosphatase 74 U/L (38-126); Aspartate Aminotransferase 24 IU/L (17-59); BUN Creatinine Ratio 20.2 (6-22); Bacteria Urine None Seen; Bilirubin Total 0.6 mg/dL (0.2-1.3); Blood Urea Nitrogen 23 mg/dL (9-20); Calcium 9.5 mg/dL (8.4-10.2); Carbon Dioxide 23 mmol/L (22-32); Chloride 102 mmol/L (98-107); Culture Indicated Urine Cult Not Indicated; Estimated Glomerular Filt Rate > 60 mL/min (>60); Globulin 3.8 g/dL (1.7-4.1); Glucose 138 mg/dL (80-110); HEMOLYSIS < 15 (0-50); Potassium 4.5 mmol/L (3.4-5.1); RBC Urine None Seen (0-5/HPF); Sodium 136 mmol/L (137-145); Squamous Epithelial Cell Urine 1-5 /HPF (0-5/HPF); Total Protein 8.2 g/dL (6.3-8.2); WBC Urine 0-1/HPF (0-5/HPF)
[2023-03-09 12:19] LABS: Add Manual Diff / Slide Review NO; Basophils Absolute Auto 0 /uL (0-100); Basophils Percent Auto 0.6 % (0-2); Eosinophils Absolute Auto 0 /uL (0-450); Eosinophils Percent Auto 0.4 % (2-4); Hematocrit 47.3 % (41-53); Hemoglobin 16.6 g/dL (13.5-17.5); Lymphocytes Absolute Auto 1100 /uL (1100-4500); Lymphocytes Percent Auto 13.8 % (25-40); Mean Corpuscular HGB Conc 35.1 % (30-36); Mean Corpuscular Hemoglobin 30.2 PG (26-34); Mean Corpuscular Volume 85.9 fL (80-100); Monocytes Absolute Auto 400 /uL (0-900); Monocytes Percent Auto 4.8 % (3-14); Neutrophils Absolute Auto 6500 /uL (1500-7000); Neutrophils Percent Auto 80.4 % (50-75); Platelet Count 153 X10^3/uL (150-400); Red Blood Cell Count 5.51 X10^6/uL (4.5-5.9)
[2023-03-09] MEDS: CYCLOBENZAPRINE 10 MG TABLET PO (13:37)
[2023-03-09] MEDS: LIDOCAINE PATCH 1 EACH ADH..PATCH TOP (13:39)
== END 2023-03-09 13:56 | disposition home or self-care (01) ==
PROVIDERS: Emergency Provider Emergency Medicine; PCP Physician Assistant
DX: R10.9 Unspecified abdominal pain (principal); N26.1 Atrophy of kidney (terminal); Z87.442 Personal history of urinary calculi
CPT/HCPCS: 74176; 80053; 81001; 85025; 96361; 96374; 96375; 99284; J2270; J2405

== ENCOUNTER → 2023-03-21 08:50 | Outpatient (CLI) | payer OTHER, SELFPAY ==
[2020-12-16 20:56] VITALS: BMI 38.7
[2023-03-21 20:21] LABS: Creatinine Urine Random 118.4 mg/dL
[2023-03-21 20:25] LABS: Microalbumi Creatinin Ratio Ur 27.8 ug/mg CR (<30); Microalbumin Urine Random 3.3 mg/dL (0-1.6)
== END ==
PROVIDERS: PCP Physician Assistant; Visit Provider Family Medicine
DX: E11.65 Type 2 diabetes mellitus with hyperglycemia (principal)
CPT/HCPCS: 82043; 82570

== ENCOUNTER → 2023-05-03 12:06 | Outpatient (CLI) | payer OTHER, SELFPAY ==
[2020-12-16 20:56] VITALS: BMI 38.7
[2023-05-03 14:12] LABS: Prostate Specific Antigen 0.659 ng/mL (0.10-4.00)
== END ==
PROVIDERS: PCP Physician Assistant; Referring Provider Specialist; Visit Provider Specialist
DX: R97.20 Elevated prostate specific antigen [PSA] (principal); Z87.442 Personal history of urinary calculi; Z68.41 Body mass index [BMI] 40.0-44.9, adult
CPT/HCPCS: 36415; 51798; 81002; 84153; 99215

== ENCOUNTER → 2023-05-18 10:34 | Outpatient (CLI) | payer OTHER, SELFPAY ==
[2020-12-16 20:56] VITALS: BMI 38.7
--- NOTE | 2023-05-20 01:15 | DI.NM.S_ITS ---
DATE OF SERVICE: 05/18/2023 PROCEDURE PERFORMED: Exercise treadmill stress and rest myocardial perfusion imaging with gating to assess ejection fraction and regional wall motion. ORDERING PROVIDER: Dr. Bony Antunez. INDICATIONS: The patient is a 58-year-old obese diabetic male with atypical chest discomfort. EXERCISE TREADMILL TESTING: The patient was able to exercise for 6 minutes and 21 seconds on a standard Allen protocol, suggesting moderately reduced exercise capacity with an ELTON of +28%. He had a normal heart rate response to exercise, achieving a maximum heart rate of 149 BPM (93% of his predicted maximum) and a mild hypertensive blood pressure response with a resting blood pressure of 122/90 increasing to a maximum of 212/110. He had no chest discomfort or other anginal symptoms. His resting ECG showed sinus rhythm with normal ST segments. There were no significant ST-segment shifts with stress. He had rare isolated PVCs at rest, but none with stress. At 5 minutes and 20 seconds of exercise, at a heart rate of 144 BPM, 26.6 millicuries of technetium-99m Myoview was injected and he was imaged 10 minutes later using a gated SPECT acquisition protocol. The day prior while at rest, he had been injected with 26.5 millicuries of technetium-99m Myoview and was then imaged 15 minutes later, again using a gated SPECT acquisition protocol. FINDINGS: 1. Raw data: There is fair myocardial tracer activity, although with clear chest wall attenuation noted, particularly along the lateral and inferior brown. The lung/heart ratio is normal at 0.37 with a normal TID ratio of 1.08. 2. Quantitative gated SPECT: Post-stress ejection fraction is estimated at 63% without any focal wall motion abnormality and specifically the inferior wall appears to have normal contractility. The resting ejection fraction is 73%, although visually appears similar to that of the post-stress images. Resting end-diastolic volume is mildly increased at 154 mL. 3. Myocardial perfusion imaging: Post-stress supine images show mildly reduced tracer activity throughout the inferior wall from apex to base, in a pattern that would be consistent with diaphragmatic attenuation artifact, supported by its near-complete resolution in the proximal and mid portion of the inferior wall, but with a slight defect remaining in the distal inferior wall on the prone images, concerning for a possible true perfusion defect. There are no other perfusion defects. The resting images show a similar perfusion pattern but with slight improvement in the distal inferior wall. IMPRESSION: 1. Probable abnormal myocardial perfusion study but low risk and with reduced specificity because of marginal image quality. 2. There is a mild, partially reversible perfusion defect in the inferior wall that resolves on the prone images except for a persistent defect in the distal inferior wall concerning for a possible true perfusion defect, suggesting probable diaphragmatic attenuation artifact but with a possible small volume of mild ischemia in the distal inferior wall, but given the small amount of myocardium, is low risk. 3. Normal left ventricular systolic function without any focal wall motion abnormality. Left ventricular volumes are mildly increased. 4. Moderately reduced exercise capacity without angina or ECG evidence of ischemia. He had a mild hypertensive blood pressure response to exercise and had rare PVCs at rest but no concerning arrhythmias with stress. Baldemar Zabala - FAMILIA/[place]lin/JOJO doc#: [id number]/job#: [id number] dd: 05/19/2023 17:12:00 dt: 05/20/2023 00:58:00 DICTATING MD/COPIES TO: David Gutiérrez MD; Bony Antunez MD COPIES MNE: PILI;
== END ==
PROVIDERS: PCP Physician Assistant; Referring Provider Internal Medicine Cardiovascular Disease; Visit Provider Internal Medicine Cardiovascular Disease
DX: R07.89 Other chest pain (principal); E11.9 Type 2 diabetes mellitus without complications; Z79.4 Long term (current) use of insulin
CPT/HCPCS: 78452; 93017; A9502

== ENCOUNTER → 2023-05-23 13:19 | Outpatient (CLI) | payer OTHER, SELFPAY ==
[2020-12-16 20:56] VITALS: BMI 38.7
[2023-05-25 12:11] LABS: Fecal Immunochemical Test Negative (Negative)
== END ==
PROVIDERS: PCP Physician Assistant; Visit Provider Family Medicine
DX: Z12.11 Encounter for screening for malignant neoplasm of colon (principal)
CPT/HCPCS: 82274

== ENCOUNTER 2023-06-10 08:37 | Emergency (ER) | payer OTHER, SELFPAY ==
[2020-12-16 20:56] VITALS: BMI 38.7
[2023-06-10 09:16] VITALS: BP 139/75; PULSE 68; RESP 14; TEMP 36.9; O2SAT 10; BMI 42.2
--- NOTE | 2023-06-10 09:21 | DI.US.S_ITS ---
PROCEDURE: US PERIPH VENOUS LOW EXTREM RT INDICATIONS: right calf pain TECHNIQUE: Real-time imaging, as well as color and pulse Doppler interrogation, were performed of the lower extremity deep veins from the inguinal ligament to the popliteal fossa, with documentation of the visualized calf veins. COMPARISON: None. FINDINGS: Occlusive DVT is seen in the femoral vein and popliteal vein. This also partially extends into the common femoral vein. The calf veins are not well seen due to edema and body habitus. IMPRESSION: Positive for DVT. Dictated by: Vishnu Porter M.D. on 06/10/2023 at 10:15 Approved by: Vishnu Porter M.D. on 06/10/2023 at 10:16
[2023-06-10 10:14] VITALS: BP 136/74; PULSE 60; O2SAT 93
--- NOTE | 2023-06-10 10:22 | ED.EXTPRO ---
HPI - Extremity Problem General Chief complaint: Extremity Problem,Nontraumatic Stated complaint: PCP ref. blood clot/ R leg Time Seen by Provider: 06/10/23 10:16 Source: patient Mode of arrival: Ambulatory History of Present Illness HPI Narrative: 58-year-old male with history of diabetes hyperlipidemia with complaint of right lower leg swelling a week before , no traumatic injury, no previous history of DVT, no shortness a breath no fever no chills no chest pain. Patient is sent from outpatient clinic to rule out DVT. He denies any long distance travel, he is comfortable in emergency room accompanied by his at bedside, they live in [facility]. Related Data Previous Rx's Medication Instructions Recorded pen needle, diabetic 31 gauge x #270 ea 03/16/2210/25 (Lite Touch Insulin Pen Hanna) metformin 1,000 mg tablet 1,000 mg PO BID #180 tabs 12/15/22 atorvastatin 20 mg tablet 20 mg PO DAILY #90 tabs 01/04/23 potassium citrate 15 mEq (1,620 30 meq (2 x 15 mEq) PO BID #360 01/12/23 mg) tablet,extended release tabs dapagliflozin propanediol 10 mg 10 mg PO QAM #30 tabs 01/31/23 tablet (Farxiga) methocarbamol 750 mg tablet 750 mg PO TID #30 tabs 03/09/23 flash glucose sensor (FreeStyle #1 ea 03/24/23 Domenico 2 Sensor kit) lisinopril 20 mg tablet 20 mg PO DAILY #90 tabs 04/10/23 insulin glargine-yfgn 100 unit/mL 32 unit (0.32 mL) SUBCUT BID #90 05/16/23 subcutaneous solution days apixaban 5 mg tablet (Eliquis) 5 mg PO BID 30 days #60 tabs 06/10/23 apixaban 5 mg tablet (Eliquis) 10 mg (2 x 5 mg) PO BID 7 days #28 06/10/23 tabs Allergies Allergy/AdvReac Type Severity Reaction Status Date / Time ibuprofen Allergy Severe Swelling Verified 06/10/23 09:20 of Lip/Tongue/Throat povidone-iodine Allergy Severe Blister Verified 06/10/23 09:20 [From Betadine] soap [From Betadine] Allergy Severe Blister Verified 06/10/23 09:20 Review of Systems Review of Systems Narrative: All negative, except what is dictated in HPI Patient History Medical History (Updated 06/10/23 @ 10:38 by Jonathon Vasques MD) History of nephrolithiasis Obesity Hepatitis (~1990) History of migraine DMII (diabetes mellitus, type 2) (~2007) Renal calculus Surgical History Anesthesia Hx of cystoscopy (12/15/20) H/O lateral meniscus repair of left knee Liver laceration, major, with open wound into cavity Family History Father Diabetes mellitus Mother Lung cancer Social History household members: significant other Smoking Status: Never smoker alcohol intake: former additional social history: alcohol: rare tobacco : none 03/2023 Smoking Status: Never smoker alcohol intake frequency: a few times a week Alcohol type: beer Substance Use Type: marijuana Exam Initial Vital Signs Initial Vital Signs: Vital Signs Temperature 98.4 F 06/10/23 09:16 Pulse Rate 68 06/10/23 09:16 Respiratory Rate 14 06/10/23 09:16 Blood Pressure 139/75 06/10/23 09:16 Pulse Oximetry 10 L 06/10/23 09:16 Oxygen Delivery Method Room Air 06/10/23 09:16 Const General: cooperative and healthy appearing HENMT Nose: external nose normal and nares normal Eyes General: Yes appearance normal, both eyes and all related structures Neck Neck: normal visual inspection and full ROM Resp Effort & Inspection: normal respiratory effort and able to speak in complete sentences Percussion: percussion normal Cardio Palpation: normal PMI and abnormal PMI Rate: regular rate Skin General: no rashes or lesions noted and elasticity normal Neuro General: patient alert, patient awake, patient oriented x3 and oriented Extrem Right lower extremity: edema and lower leg Details: localized swelling and pitting edema; no abrasions, no lacerations, no ecchymosis, no crepitus, no foreign bodies, no penetrating wound, no deformity and no unusual warmth Psych Appearance: grossly normal and well kempt Course Orders Ordered: ED Orders 06/10/23 09:21 US periph venous low extrem rt Stat Discontinued Medications Apixaban (Apixaban 5 Mg Tablet) 10 mg PO NOW ONE Stop: 06/10/23 10:20 Last Admin: 06/10/23 10:30 Dose: 10 mg Vital Signs Vital signs: Vital Signs - 8 hr 06/10/23 09:16 06/10/23 10:14 06/10/23 10:14 Temperature 98.4 F Pulse Rate 68 60 Respiratory Rate 14 Blood Pressure 139/75 136/74 Pulse Oximetry 10 L 93 Oxygen Delivery Method Room Air MDM - Extremity (Nontraumatic) MDM Narrative Medical decision making narrative: 58-year-old male with history of diabetes hyperlipidemia with complaint of right lower leg swelling a week before [place], no traumatic injury, no previous history of DVT, no shortness a breath no fever no chills no chest pain. Patient is sent from outpatient clinic to rule out DVT. He denies any long distance travel, he is comfortable in emergency room accompanied by his at bedside, they live in [facility]. Based on my H&P differential diagnosis include right lower extremity DVT, nonspecific swelling, knee effusion, cellulitis Patient is agreeable to have venous Doppler study done Venous Doppler shows positive finding, We talked about the treatment and management of DVT which include starting anticoagulation medication. We will start with Eliquis 10 mg twice daily for 1 week and down to 5 mg twice daily. He will benefit upon referral to hematology for further investigation such as protein C protein S factor 5 Leiden investigation. And further education about DVT management. He understood his instructions and agreed to be referred. If I am not able to refer him from the emergency room, he will follow with his primary care doctor for surgery referral All questions addressed, stable at time of discharge with his at bedside. Discharge Plan Departure Patient Disposition: Home Clinical Impression: DVT (deep venous thrombosis) Qualifiers: DVT location: lower extremity Affected thrombotic vein of extremity: femoral Chronicity: acute Laterality: right Qualified Code(s): I82.411 - Acute embolism and thrombosis of right femoral vein Instructions: DI for Deep Vein Thrombosis Prescriptions: New Eliquis 5 mg tablet 10 mg PO BID 7 Days Qty: 28 0RF Rx Instructions: 10mg BID for 7 days and then 5mg BID for 30days Eliquis 5 mg tablet 5 mg PO BID 30 Days Qty: 60 0RF Rx Instructions: 10mg BID for 7 days and then 5mg BID for 30days No Action (DME) pen needle, diabetic [Lite Touch Insulin Pen Hanna] 31 gauge x 5/16 needle See Rx Instructions .Route Qty: 270 0RF Rx Instructions: Can use needle up to 3 times a day for insulin use metformin 1,000 mg tablet 1,000 mg PO BID Qty: 180 3RF Rx Instructions: Take with food atorvastatin 20 mg tablet 20 mg PO DAILY Qty: 90 3RF (DME) FreeStyle Domenico 2 Sensor Kit See Rx Instructions .Route Qty: 1 0RF Rx Instructions: As directed insulin glargine-yfgn 100 unit/mL solution 32 unit SUBCUT BID Qty: 90 0RF Rx Instructions: Please take 32 units of glargine subcutaneously, twice a day. Please include needles. Thank you methocarbamol 750 mg tablet 750 mg PO TID Qty: 30 0RF Farxiga 10 mg tablet 10 mg PO QAM Qty: 30 11RF lisinopril 20 mg tablet 20 mg PO DAILY Qty: 90 1RF Rx Instructions: stop 10mg tabs. increase to 20mg/d to protect kidneys and control BP. take even if BP is normal. potassium citrate 15 mEq tablet extended release 30 meq PO BID Qty: 360 3RF Referrals: Phi Osorio MD [Physician] - (acute right lower extremity DVT) Loretta Munroe MD [Primary Care Provider] - Stand Alone Forms: Patient Portal/API
[2023-06-10] MEDS: APIXABAN 5 MG TABLET 10 MG PO (10:30)
--- NOTE | 2023-06-10 10:58 | ED.EXTPRO ---
HPI - Extremity Problem General Chief complaint: Extremity Problem,Nontraumatic Stated complaint: PCP ref. blood clot/ R leg Time Seen by Provider: 06/10/23 10:16 Source: patient Mode of arrival: Ambulatory History of Present Illness HPI Narrative: 58-year-old male presented with history of hyperlipidemia diabetes presented to emergency room with right lower leg swelling. This has been ongoing since 1 week prior to [place], there is no traumatic injury to the area, no complaint of shortness a breath no nausea no vomiting, no recent illnesses or travel. No prior history of DVT. No history of cellulitis of lower extremity, no known history of arterial disease. In emergency room patient accompanied by his at bedside. Related Data Previous Rx's Medication Instructions Recorded pen needle, diabetic 31 gauge x #270 ea 03/16/2210/25 (Lite Touch Insulin Pen [place]) metformin 1,000 mg tablet 1,000 mg PO BID #180 tabs 12/15/22 atorvastatin 20 mg tablet 20 mg PO DAILY #90 tabs 01/04/23 potassium citrate 15 mEq (1,620 30 meq (2 x 15 mEq) PO BID #360 01/12/23 mg) tablet,extended release tabs dapagliflozin propanediol 10 mg 10 mg PO QAM #30 tabs 01/31/23 tablet (Farxiga) methocarbamol 750 mg tablet 750 mg PO TID #30 tabs 03/09/23 flash glucose sensor (FreeStyle #1 ea 03/24/23 Domenico 2 Sensor kit) lisinopril 20 mg tablet 20 mg PO DAILY #90 tabs 04/10/23 insulin glargine-yfgn 100 unit/mL 32 unit (0.32 mL) SUBCUT BID #90 05/16/23 subcutaneous solution days apixaban 5 mg tablet (Eliquis) 5 mg PO BID 30 days #60 tabs 06/10/23 apixaban 5 mg tablet (Eliquis) 5 mg PO BID DVT 30 days #60 tabs 06/10/23 apixaban 5 mg tablet (Eliquis) 10 mg (2 x 5 mg) PO BID 7 days #28 06/10/23 tabs apixaban 5 mg tablet (Eliquis) 10 mg (2 x 5 mg) PO BID DVT 7 days 06/10/23 #28 tabs Allergies Allergy/AdvReac Type Severity Reaction Status Date / Time ibuprofen Allergy Severe Swelling Verified 06/10/23 09:20 of Lip/Tongue/Throat povidone-iodine Allergy Severe Blister Verified 06/10/23 09:20 [From Betadine] soap [From Betadine] Allergy Severe Blister Verified 06/10/23 09:20 Review of Systems Review of Systems Narrative: All system review negative except what is dictated in HPI Patient History Medical History (Updated 06/10/23 @ 10:38 by Jonathon Vasques MD) History of nephrolithiasis Obesity Hepatitis (~1990) History of migraine DMII (diabetes mellitus, type 2) (~2007) Renal calculus Surgical History Anesthesia Hx of cystoscopy (12/15/20) H/O lateral meniscus repair of left knee Liver laceration, major, with open wound into cavity Family History Father Diabetes mellitus Mother Lung cancer Social History household members: significant other Smoking Status: Never smoker alcohol intake: former additional social history: alcohol: rare tobacco : none 03/2023 Smoking Status: Never smoker alcohol intake frequency: a few times a week Alcohol type: beer Substance Use Type: marijuana Exam Narrative Exam Narrative: GENERAL: [58] year old patient appears stated age. Well-developed patient, in no distress. HEAD: Atraumatic. Normocephalic. EYES: Pupils equal round and reactive. Extraocular motions intact. No scleral icterus. No injection or drainage. ENT: Nose without bleeding, purulent drainage. Throat without erythema, tonsillar hypertrophy or exudate. Airway patent. NECK: Trachea midline. Non tender CARDIOVASCULAR: Regular rate and rhythm without murmurs, gallops, or rubs. RESPIRATORY: Clear to auscultation. Breath sounds equal bilaterally. No wheezes, rales, or rhonchi. GASTROINTESTINAL: Abdomen soft, non-tender, nondistended. EXTREMITIES: Edema of the right lower extremity, mild cough tenderness on palpation and squeezed BACK: Nontender without deformity or crepitance. No flank tenderness. NEURO: AOx3. SKIN: No rash or erythema of visible areas Initial Vital Signs Initial Vital Signs: Vital Signs Temperature 98.4 F 06/10/23 09:16 Pulse Rate 68 06/10/23 09:16 Respiratory Rate 14 06/10/23 09:16 Blood Pressure 139/75 06/10/23 09:16 Pulse Oximetry 10 L 06/10/23 09:16 Oxygen Delivery Method Room Air 06/10/23 09:16 Course Orders Ordered: ED Orders 06/10/23 09:21 US periph venous low extrem rt Stat Discontinued Medications Apixaban (Apixaban 5 Mg Tablet) 10 mg PO NOW ONE Stop: 06/10/23 10:20 Last Admin: 06/10/23 10:30 Dose: 10 mg Documented By: AMMindy Vital Signs Vital signs: Vital Signs - 8 hr 06/10/23 09:16 06/10/23 10:14 06/10/23 10:14 Temperature 98.4 F Pulse Rate 68 60 Respiratory Rate 14 Blood Pressure 139/75 136/74 Pulse Oximetry 10 L 93 Oxygen Delivery Method Room Air MDM - Extremity (Nontraumatic) Imaging Data US - DVT: Radiologist's Impression: [place] [address] Ultrasound Report Signed Patient: Baldemar Zabala MR#: [id number] : 1965 Acct:[id number] Age/Sex: 58 / M Date of Service: 06/10/23 Loc: ED Accession Number: [id number] Procedure: US periph venous low extrem rt Ordering Provider: Jonathon Vasques MD PROCEDURE: US PERIPH VENOUS LOW EXTREM RT INDICATIONS: right calf pain TECHNIQUE: Real-time imaging, as well as color and pulse Doppler interrogation, were performed of the lower extremity deep veins from the inguinal ligament to the popliteal fossa, with documentation of the visualized calf veins. COMPARISON: None. FINDINGS: Occlusive DVT is seen in the femoral vein and popliteal vein. This also partially extends into the common femoral vein. The calf veins are not well seen due to edema and body habitus. IMPRESSION: Positive for DVT. Dictated by: Vishnu Porter M.D. on 06/10/2023 at 10:15 Approved by: Vishnu Porter M.D. on 06/10/2023 at 10:16 MDM Narrative Medical decision making narrative: 58-year-old male presented with history of hyperlipidemia diabetes presented to emergency room with right lower leg swelling. This has been ongoing since 1 week prior to [place], there is no traumatic injury to the area, no complaint of shortness a breath no nausea no vomiting, no recent illnesses or travel. No prior history of DVT. No history of cellulitis of lower extremity, no known history of arterial disease. In emergency room patient accompanied by his at bedside. Basal H&P differential diagnosis include DVT, cellulitis, arterial disease. Patient is agreeable to have venous Doppler study done. Remains Doppler demonstrated positive finding, patient is agreeable to be started on Eliquis 10 mg b.i.d. for 7 days and 5 mg b.i.d. for a rest of the 1 month, patient has been given information of Oncology office where patient can make phone call to be refer to have further investigation for the cause of this DVT, study such as protein C protein S factor 5 Leiden need to be completed. He understood my instructions, Patient is stable at time of discharge after administration of 10 mg of Eliquis in emergency room. Discharge Plan Departure Patient Disposition: Home Clinical Impression: DVT (deep venous thrombosis) Qualifiers: DVT location: lower extremity Affected thrombotic vein of extremity: femoral Chronicity: acute Laterality: right Qualified Code(s): I82.411 - Acute embolism and thrombosis of right femoral vein Instructions: DI for Deep Vein Thrombosis Prescriptions: New Eliquis 5 mg tablet 10 mg PO BID 7 Days Qty: 28 0RF Rx Instructions: 10mg BID for 7 days and then 5mg BID for 30days Eliquis 5 mg tablet 5 mg PO BID 30 Days Qty: 60 0RF Rx Instructions: 10mg BID for first 7 days and then 5mg BID for 30days Eliquis 5 mg tablet 10 mg PO BID 7 Days Qty: 28 0RF Eliquis 5 mg tablet 5 mg PO BID 30 Days Qty: 60 0RF Rx Instructions: 10mg BID for 7 days and then 5mg BID for 30days (start on 06/18/2023) No Action (DME) pen needle, diabetic [Lite Touch Insulin Pen [place]] 31 gauge x 5/16 needle See Rx Instructions .Route Qty: 270 0RF Rx Instructions: Can use needle up to 3 times a day for insulin use metformin 1,000 mg tablet 1,000 mg PO BID Qty: 180 3RF Rx Instructions: Take with food atorvastatin 20 mg tablet 20 mg PO DAILY Qty: 90 3RF (DME) FreeStyle [place] 2 Sensor Kit See Rx Instructions .Route Qty: 1 0RF Rx Instructions: As directed insulin glargine-yfgn 100 unit/mL solution 32 unit SUBCUT BID Qty: 90 0RF Rx Instructions: Please take 32 units of glargine subcutaneously, twice a day. Please include needles. Thank you methocarbamol 750 mg tablet 750 mg PO TID Qty: 30 0RF Farxiga 10 mg tablet 10 mg PO QAM Qty: 30 11RF lisinopril 20 mg tablet 20 mg PO DAILY Qty: 90 1RF Rx Instructions: stop 10mg tabs. increase to 20mg/d to protect kidneys and control BP. take even if BP is normal. potassium citrate 15 mEq tablet extended release 30 meq PO BID Qty: 360 3RF Referrals: Phi Osorio MD [Physician] - (acute right lower extremity DVT) Loretta Munroe MD [Primary Care Provider] - Stand Alone Forms: Patient Portal/API
== END 2023-06-10 11:06 | disposition home or self-care (01) ==
PROVIDERS: Emergency Provider Emergency Medicine Emergency Medical Services; PCP Family Medicine
DX: I82.411 Acute embolism and thrombosis of right femoral vein (principal); Z79.01 Long term (current) use of anticoagulants; Z79.899 Other long term (current) drug therapy
CPT/HCPCS: 93971; 99283

== ENCOUNTER → 2023-07-04 08:49 | Outpatient (CLI) | payer SELFPAY ==
[2020-12-16 20:56] VITALS: BMI 38.7
[2023-07-04 20:11] LABS: Alanine Aminotransferase 25 IU/L (<50); Albumin 3.7 g/dL (3.5-5.0); Albumin Globulin Ratio 1.2 (1.0-2.8); Alkaline Phosphatase 65 U/L (38-126); Aspartate Aminotransferase 22 IU/L (17-59); BUN Creatinine Ratio 19.2 (6-22); Bilirubin Total 0.6 mg/dL (0.2-1.3); Blood Urea Nitrogen 24 mg/dL (9-20); Calcium 9.5 mg/dL (8.4-10.2); Carbon Dioxide 24 mmol/L (22-32); Chloride 106 mmol/L (98-107); Cholesterol 157 mg/dL (140-199); Estimated Glomerular Filt Rate > 60 mL/min (>60); Globulin 3.2 g/dL (1.7-4.1); Glucose 174 mg/dL (80-110); HDL Cholesterol 28 mg/dL (40-60); HEMOLYSIS < 15 (0-50); LDL Cholesterol Calculated 107 mg/dL (<100); Potassium 4.7 mmol/L (3.4-5.1); Sodium 138 mmol/L (137-145); Total Protein 6.9 g/dL (6.3-8.2); Triglycerides 112 mg/dL (35-150)
[2023-07-04 20:12] LABS: Add Manual Diff / Slide Review NO; Basophils Absolute Auto 100 /uL (0-100); Basophils Percent Auto 1.2 % (0-2); Eosinophils Absolute Auto 100 /uL (0-450); Eosinophils Percent Auto 2.1 % (2-4); Hematocrit 42.3 % (41-53); Hemoglobin 14.7 g/dL (13.5-17.5); Lymphocytes Absolute Auto 1300 /uL (1100-4500); Lymphocytes Percent Auto 24.1 % (25-40); Mean Corpuscular HGB Conc 34.8 % (30-36); Mean Corpuscular Hemoglobin 29.8 PG (26-34); Mean Corpuscular Volume 85.7 fL (80-100); Monocytes Absolute Auto 500 /uL (0-900); Monocytes Percent Auto 8.9 % (3-14); Neutrophils Absolute Auto 3400 /uL (1500-7000); Neutrophils Percent Auto 63.7 % (50-75); Platelet Count 123 X10^3/uL (150-400); Red Blood Cell Count 4.93 X10^6/uL (4.5-5.9); Red Cell Distribution Width 13.9 % (11.6-14.8); White Blood Cell Count 5.3 X10^3/uL (4.5-11.0)
== END ==
PROVIDERS: PCP Family Medicine; Visit Provider Family Medicine
DX: E11.9 Type 2 diabetes mellitus without complications (principal); Z79.4 Long term (current) use of insulin; I10 Essential (primary) hypertension; E11.65 Type 2 diabetes mellitus with hyperglycemia
CPT/HCPCS: 80053; 80061; 83036; 85025

== ENCOUNTER → 2023-08-14 14:37 | Outpatient (CLI) | payer OTHER, SELFPAY ==
[2020-12-16 20:56] VITALS: BMI 38.7
[2023-08-14 20:25] LABS: Hematocrit 40.8 % (41-53); Hemoglobin 14.3 g/dL (13.5-17.5)
[2023-08-14 20:27] LABS: BUN Creatinine Ratio 16.1 (6-22); Blood Urea Nitrogen 20 mg/dL (9-20); Calcium 9.2 mg/dL (8.4-10.2); Carbon Dioxide 27 mmol/L (22-32); Chloride 105 mmol/L (98-107); Estimated Glomerular Filt Rate > 60 mL/min (>60); Glucose 160 mg/dL (80-110); HEMOLYSIS < 15 (0-50); Potassium 4.3 mmol/L (3.4-5.1); Sodium 135 mmol/L (137-145)
[2023-08-14 20:31] LABS: Creatinine Urine Random 78.9 mg/dL; Protein (Total) Urine Random 8 mg/dL (0-12)
== END ==
PROVIDERS: PCP Family Medicine; Visit Provider Student in an Organized Health Care Education/Training Program
DX: N05.9 Unspecified nephritic syndrome with unspecified morphologic changes (principal); D70.9 Neutropenia, unspecified; D63.1 Anemia in chronic kidney disease; R80.9 Proteinuria, unspecified
CPT/HCPCS: 80048; 82570; 84156; 85014; 85018

== ENCOUNTER → 2023-10-24 14:15 | Outpatient (CLI) | payer OTHER, SELFPAY ==
[2020-12-16 20:56] VITALS: BMI 38.7
[2023-10-24 19:18] LABS: BUN Creatinine Ratio 19.5 (6-22); Blood Urea Nitrogen 26 mg/dL (9-20); Calcium 9.2 mg/dL (8.4-10.2); Carbon Dioxide 22 mmol/L (22-32); Chloride 104 mmol/L (98-107); Estimated Glomerular Filt Rate > 60 mL/min (>60); HEMOLYSIS < 15 (0-50); Phosphorous 3.7 mg/dL (2.3-3.7); Potassium 4.9 mmol/L (3.4-5.1); Sodium 133 mmol/L (137-145)
[2023-10-24 19:24] LABS: Hematocrit 40.5 % (41-53); Hemoglobin 14.2 g/dL (13.5-17.5)
[2023-10-24 19:51] LABS: Creatinine Urine Random 31.9 mg/dL; Protein (Total) Urine Random 13 mg/dL (0-12)
[2023-10-24 20:00] LABS: Glucose 500 mg/dL (80-110)
== END ==
PROVIDERS: PCP Family Medicine; Visit Provider Student in an Organized Health Care Education/Training Program
DX: N05.9 Unspecified nephritic syndrome with unspecified morphologic changes (principal); D70.9 Neutropenia, unspecified; D63.1 Anemia in chronic kidney disease; E83.30 Disorder of phosphorus metabolism, unspecified; N25.81 Secondary hyperparathyroidism of renal origin; R80.9 Proteinuria, unspecified
CPT/HCPCS: 80048; 82570; 83970; 84100; 84156; 85014; 85018

== ENCOUNTER → 2024-04-23 09:50 | Outpatient (CLI) | payer BC, SELFPAY ==
[2020-12-16 20:56] VITALS: BMI 38.7
[2024-04-23 19:11] LABS: Add Manual Diff / Slide Review NO; Basophils Absolute Auto 0 /uL (0-100); Basophils Percent Auto 0.7 % (0-2); Eosinophils Absolute Auto 100 /uL (0-450); Eosinophils Percent Auto 1.2 % (2-4); Hematocrit 43.2 % (41-53); Hemoglobin 15.2 g/dL (13.5-17.5); Lymphocytes Absolute Auto 1300 /uL (1100-4500); Lymphocytes Percent Auto 19.5 % (25-40); Mean Corpuscular HGB Conc 35.3 % (30-36); Mean Corpuscular Hemoglobin 30.4 PG (26-34); Monocytes Absolute Auto 500 /uL (0-900); Monocytes Percent Auto 7.7 % (3-14); Neutrophils Absolute Auto 4900 /uL (1500-7000); Neutrophils Percent Auto 70.9 % (50-75); Platelet Count 140 X10^3/uL (150-400); Red Blood Cell Count 5.02 X10^6/uL (4.5-5.9); Red Cell Distribution Width 13.9 % (11.6-14.8); White Blood Cell Count 6.9 X10^3/uL (4.5-11.0)
[2024-04-23 19:13] LABS: Alanine Aminotransferase 28 IU/L (<50); Albumin 3.7 g/dL (3.5-5.0); Albumin Globulin Ratio 1.2 (1.0-2.8); Alkaline Phosphatase 83 U/L (38-126); Aspartate Aminotransferase 25 IU/L (17-59); BUN Creatinine Ratio 16.8 (6-22); Bilirubin Total 0.6 mg/dL (0.2-1.3); Blood Urea Nitrogen 22 mg/dL (9-20); Calcium 9.4 mg/dL (8.4-10.2); Carbon Dioxide 24 mmol/L (22-32); Chloride 104 mmol/L (98-107); Cholesterol 166 mg/dL (140-199); Estimated Glomerular Filt Rate > 60 mL/min (>60); Globulin 3.1 g/dL (1.7-4.1); Glucose 172 mg/dL (80-110); HDL Cholesterol 26 mg/dL (40-60); HEMOLYSIS < 15 (0-50); LDL Cholesterol Calculated 117 mg/dL (<100); Potassium 4.5 mmol/L (3.4-5.1); Sodium 136 mmol/L (137-145); Total Protein 6.8 g/dL (6.3-8.2); Triglycerides 116 mg/dL (35-150)
[2024-04-23 19:15] LABS: Hemoglobin A1C% w Est Avg Glu 11.2 % (4.0-6.0)
[2024-04-23 19:32] LABS: Creatinine Urine Random 113.35 mg/dL
[2024-04-23 19:39] LABS: Microalbumin Urine Random 2.2 mg/dL (0-1.6)
== END ==
PROVIDERS: PCP Family Medicine; Visit Provider Family Medicine
DX: D69.6 Thrombocytopenia, unspecified (principal); E11.41 Type 2 diabetes mellitus with diabetic mononeuropathy; I10 Essential (primary) hypertension; Z79.4 Long term (current) use of insulin; E11.65 Type 2 diabetes mellitus with hyperglycemia; Z68.42 Body mass index [BMI] 45.0-49.9, adult; K76.0 Fatty (change of) liver, not elsewhere classified
CPT/HCPCS: 80053; 80061; 82043; 82570; 83036; 85025

== ENCOUNTER 2024-05-04 10:31 | Emergency (ER) | payer BC, SELFPAY ==
[2020-12-16 20:56] VITALS: BMI 38.7
[2024-05-04 10:36] VITALS: BP 157/79; PULSE 64; RESP 18; TEMP 37.2; O2SAT 98; BMI 41.5
--- NOTE | 2024-05-04 10:43 | DI.RAD.S_ITS ---
PROCEDURE: XR SHOULDER RT MIN 2V INDICATIONS: Fall with increasing pain since . TECHNIQUE: 3 views of the shoulder were acquired. COMPARISON: None. FINDINGS: Bones: No fractures or dislocations. No suspicious bony lesions. There is chronic deformity seen of the right 5th rib. Visualized ribs otherwise appear intact. Degenerative changes are seen, with mild subacromial spurring. Soft tissues: No suspicious soft tissue calcifications. IMPRESSION: No acute plain film abnormality is seen. 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 Underlying degenerative changes are seen. If it would be helpful for clinical management decision making, please consider a dedicated, scheduled shoulder MRI for further evaluation (assuming that there is no contraindication). Dictated by: Zan Baugh M.D. on 05/04/2024 at 10:14 Approved by: Zan Baugh M.D. on 05/04/2024 at 10:15
--- NOTE | 2024-05-04 11:31 | ED_ITS ---
<Statement entered by Noel Soliman DO - 05/04/24 12:43> Dr. Soliman: I was immediately available in the department for consultation. Documentation has been reviewed. I agree with assessment and plan. HPI - Extremity Injury (Upper) General Chief Complaint: Extremity Injury, Upper Stated Complaint: right shoulder pain Time Seen by Provider: 05/04/24 11:00 Source: patient Mode of arrival: Ambulatory History of Present Illness HPI narrative: Mr. Mcdermott is a pleasant 59-year-old male with a past medical history of hypertension, hyperlipidemia, T2 DM who presents to the emergency department for right shoulder pain x3 days. Patient states he was at work on walking outside checking takes when he accidentally fell walking through some bushes and landed on his right anterior shoulder. He denies hitting his head, loss of consciousness, any other injury. States that his right shoulder immediately started hurting it has been constantly hurting since then. States he is unable to abduct the right shoulder secondary to pain. He has no pain of the right lower arm, elbow, wrist. No neck or back pain. No difficulty ambulating. States he was recently taken off anticoagulation by his PCP for history of DVTs. Related Data Home Medications Medication Instructions Recorded Confirmed hydrochlorothiazide 12.5 mg tablet 12.5 mg PO DAILY 03/15/24 04/30/24 Previous Rx's Medication Instructions Recorded pen needle, diabetic 31 gauge x #270 ea 03/16/2210/25 (Lite Touch Insulin Pen [place]) flash glucose sensor (FreeStyle #1 ea 03/24/23 Domenico 2 Sensor kit) insulin glargine-yfgn 100 unit/mL 40 unit (0.4 mL) SUBCUT BID #90 08/17/23 subcutaneous solution days metformin 1,000 mg tablet 1,000 mg PO BID #180 tabs 12/21/23 Lantus Solostar U-100 Insulin 100 40 unit (0.4 mL) SUBCUT BID #3 mL 03/05/24 unit/mL (3 mL) subcutaneous pen (insulin glargine) lisinopril 20 mg tablet 20 mg PO DAILY #90 tabs 03/16/24 dapagliflozin propanediol 10 mg 10 mg PO QAM #30 tabs 04/30/24 tablet (Farxiga) pen needle, diabetic 31 gauge x #100 ea 11/19/24 5/16 (BD Ultra-Fine Short Pen Needle) semaglutide 0.25 mg or 0.5 mg (2 0.5 mg (0.736 mL) SUBCUT QWEEK 04/30/24 mg/3 mL) subcutaneous pen injector increase to 0.5 mg #3 mL (Ozempic) lidocaine 5 % topical patch 1 patch topical DAILY #15 ea 05/04/24 (Lidoderm) Allergies Allergy/AdvReac Type Severity Reaction Status Date / Time ibuprofen Allergy Severe Swelling Verified 04/30/24 15:21 of Lip/Tongue/Throat povidone-iodine Allergy Severe Blister Verified 04/30/24 15:21 [From Betadine] soap [From Betadine] Allergy Severe Blister Verified 04/30/24 15:21 Review of Systems Review of Systems ROS Unobtainable: All systems reviewed & are unremarkable except as noted in HPI and below Patient History Medical History Obesity History of nephrolithiasis Hepatitis (~1990) History of migraine DMII (diabetes mellitus, type 2) (~2007) Renal calculus Surgical History Anesthesia Hx of cystoscopy (12/15/20) H/O lateral meniscus repair of left knee Liver laceration, major, with open wound into cavity Family History Father Diabetes mellitus Mother Lung cancer Social History household members: significant other Smoking Status: Never smoker alcohol intake: former additional social history: alcohol: rare tobacco : none 03/2023 Smoking Status: Never smoker alcohol intake frequency: a few times a week Alcohol type: beer Substance Use Type: marijuana Exam Narrative Exam Narrative: GENERAL: 59 year old patient appears stated age. Well-developed patient, in no acute distress. HEAD: Atraumatic. Normocephalic. EYES: Extraocular motions intact. No scleral icterus. No injection or drainage. ENT: Nose without bleeding, purulent drainage. Airway patent. NECK: Trachea midline. Cervical ROM intact. No midline cervical tenderness. CARDIOVASCULAR: Regular rate and rhythm. RESPIRATORY: ?Nonlabored respirations. ?Speaking in clear, full sentences. ?Clear to auscultation. Breath sounds equal bilaterally. No wheezes, rales, or rhonchi. ? EXTREMITIES: Tenderness to palpation of anterior right shoulder. Pain with both passive and active abduction of rigth shoulder >30 degrees. No tenderness to palpation of right elbow, right wrist, right hand. Full range of motion of lower right arm and hand. Sensation intact in the distribution of the median, radial, ulnar nerve bilaterally. Strong radial pulse. No other tenderness to palpation of the remainder of the appendicular or axial skeleton. BACK: Nontender without deformity or crepitance. NEURO: AOx3. ?Clear speech. ?Steady gait. SKIN: No rash or erythema of visible areas Initial Vital Signs Initial Vital Signs: Vital Signs Temperature 99 F 05/04/24 10:36 Pulse Rate 64 05/04/24 10:36 Respiratory Rate 18 05/04/24 10:36 Blood Pressure 157/79 H 05/04/24 10:36 Pulse Oximetry 98 05/04/24 10:36 Oxygen Delivery Method Room Air 05/04/24 10:36 Course Orders Ordered: ED Orders 05/04/24 10:43 XR shoulder RT min 2V Stat Discontinued Medications Hydrocodone Bitart/Acetaminophen (Hydrocodone/Acet 5/325 Tablet) 1 tab PO NOW ONE Stop: 05/04/24 11:45 Lidocaine (Lidocaine 5% Patch) 1 each TOP NOW ONE Stop: 05/04/24 11:45 Vital Signs Vital signs: Vital Signs - 8 hr 05/04/24 10:36 Temperature 99 F Pulse Rate 64 Respiratory Rate 18 Blood Pressure 157/79 H Pulse Oximetry 98 Oxygen Delivery Method Room Air MDM - Extremity Injury (Upper) Imaging Data Right shoulder X-Ray: Radiologist's Impression: PROCEDURE: XR SHOULDER RT MIN 2V INDICATIONS: Fall with increasing pain since . TECHNIQUE: 3 views of the shoulder were acquired. COMPARISON: None. FINDINGS: Bones: No fractures or dislocations. No suspicious bony lesions. There is chronic deformity seen of the right 5th rib. Visualized ribs otherwise appear intact. Degenerative changes are seen, with mild subacromial spurring. Soft tissues: No suspicious soft tissue calcifications. IMPRESSION: No acute plain film abnormality is seen. 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 Underlying degenerative changes are seen. If it would be helpful for clinical management decision making, please consider a dedicated, scheduled shoulder MRI for further evaluation (assuming that there is no contraindication). [facility] Narrative Medical decision making narrative: 59-year-old male with a past medical history of hypertension, hyperlipidemia, type 2 diabetes presents to the emergency department for right shoulder pain x3 days after falling directly on the right shoulder. Patient denies any head trauma, headache, loss of consciousness, neck pain. Differential diagnosis includes but not limited to right shoulder fracture, clavicular fracture, shoulder dislocation, rotator cuff tear, shoulder strain, etc. On exam patient is in no acute distress, nontoxic appearing. Right arm is neurovascularly intact. He is tenderness to palpation of the anterior right shoulder and pain with abduction of the right shoulder. Physical exam is concerning for possible rotator cuff injury. X-ray reveals no acute bony abnormalities. He does have a chronic abnormality of the right 5th rib and underlying degenerative changes. I provided him a copy of his x-ray results and we discussed incidental findings. Patient is allergic to ibuprofen. We will treat him with a 1 time dose of hydrocodone-acetaminophen, lidocaine patch, and place him into a right arm sling. Recommended he continues taking Tylenol for pain, lidocaine patch, and follows up with Orthopedics for further evaluation. We discussed risks of narcotics, his is here to drive him home. Patient verbalized understanding of all information is agreeable to the plan and is stable for discharge. Discharge Plan Departure Patient Disposition: Home Clinical Impression: Right shoulder strain Qualifiers: Encounter type: initial encounter Qualified Code(s): S46.911A - Strain of unspecified muscle, fascia and tendon at shoulder and upper arm level, right arm, initial encounter Fall Qualifiers: Encounter type: initial encounter Qualified Code(s): W19.XXXA - Unspecified fall, initial encounter Instructions: DI for Shoulder Sprain Activity Restrictions/Additional Instructions: Please take Acetaminophen (Tylenol) for pain. You may take Acetaminophen 650 mg every 4-6 hours for pain. Do not exceed 3000 mg of Tylenol a day as this can cause liver damage. Do not drink alcohol with this medications. You may also use the prescribed lidocaine patches directly on the right shoulder. Rest the painful area. Ice the area of pain/swelling for at least 15 minutes, 4x a day. Please call to schedule an appointment with [facility], Dr. Min Carmona (or another available provider), at [phone]. Your diagnosis today is right shoulder strain, concern for rotator cuff injury. Please follow up with your primary care doctor within the next 2-3 days for ER follow-up. (If you do not have a PCP you can call [phone]. ?to schedule an appointment with an [facility] Primary Care Provider) IF YOU DEVELOP ANY NEW OR WORSENING SYMPTOMS, RETURN TO THE ER! Please read the attached instructions, they highlight more specific treatments and interventions for you at home. Thank you for letting me participate in your care, Franac Tian PA-C Prescriptions: New lidocaine [Lidoderm] 5 % adhesive patch,medicated 1 patch topical DAILY Qty: 15 0RF Rx Instructions: leave on most painful area for up to 12 hrs No Action (DME) pen needle, diabetic [Lite Touch Insulin Pen [place]] 31 gauge x 5/16 needle See Rx Instructions .Route Qty: 270 0RF Rx Instructions: Can use needle up to 3 times a day for insulin use (DME) FreeStyle [place] 2 Sensor Kit See Rx Instructions .Route Qty: 1 0RF Rx Instructions: As directed metformin 1,000 mg tablet 1,000 mg PO BID Qty: 180 1RF insulin glargine [Lantus Solostar U-100 Insulin] 100 unit/mL (3 mL) insulin pen 40 unit SUBCUT BID Qty: 3 0RF lisinopril 20 mg tablet 20 mg PO DAILY Qty: 90 0RF Rx Instructions: stop 10mg tabs. increase to 20mg/d to protect kidneys and control BP. take even if BP is normal. insulin glargine-yfgn 100 unit/mL solution 40 unit SUBCUT BID Qty: 90 1RF Rx Instructions: Please take 40 units of glargine subcutaneously, twice a day. Please include needles. Thank you hydrochlorothiazide 12.5 mg tablet 12.5 mg PO DAILY Ozempic 0.25 mg or 0.5 mg (2 mg/3 mL) pen injector 0.5 mg SUBCUT QWEEK Qty: 3 5RF Rx Instructions: increase to 0.5mg (DME) pen needle, diabetic [BD Ultra-Fine Short Pen Needle] 31 gauge x 5/16 needle See Rx Instructions .Route Qty: 100 12RF Rx Instructions: BID dapagliflozin propanediol [Farxiga] 10 mg tablet 10 mg PO QAM Qty: 30 5RF Referrals: Loretta Munroe MD [Primary Care Provider] - Stand Alone Forms: Patient Portal/API/Survey
[2024-05-04] MEDS: HYDROCODONE/ACET 5/325 TABLET 1 TAB PO (12:02)
[2024-05-04] MEDS: LIDOCAINE 5% PATCH 1 EACH TOP (12:02)
[2024-05-04 12:18] VITALS: BP 124/79; PULSE 67; RESP 18; O2SAT 99
== END 2024-05-04 12:18 | disposition home or self-care (01) ==
PROVIDERS: Emergency Provider Physician Assistant; PCP Family Medicine
DX: S46.911A Strain of unspecified muscle, fascia and tendon at shoulder and upper arm level, right arm, initial encounter (principal); W18.30XA Fall on same level, unspecified, initial encounter
CPT/HCPCS: 73030; 99283

== ENCOUNTER → 2024-07-30 07:00 | Outpatient (CLI) | payer BC, SELFPAY ==
[2020-12-16 20:56] VITALS: BMI 38.7
[2024-08-01 11:10] LABS: Fecal Immunochemical Test Negative (Negative)
== END ==
PROVIDERS: PCP Family Medicine; Visit Provider Family Medicine
DX: Z12.11 Encounter for screening for malignant neoplasm of colon (principal)
CPT/HCPCS: 82274

== ENCOUNTER → 2024-08-14 13:51 | Outpatient (CLI) | payer BC, SELFPAY ==
[2020-12-16 20:56] VITALS: BMI 38.7
[2024-08-14 20:24] LABS: Hematocrit 43.3 % (41-53); Hemoglobin 15.1 g/dL (13.5-17.5)
[2024-08-14 20:35] LABS: BUN Creatinine Ratio 18.5 (6-22); Blood Urea Nitrogen 29 mg/dL (9-20); Calcium 9.3 mg/dL (8.4-10.2); Carbon Dioxide 24 mmol/L (22-32); Chloride 96 mmol/L (98-107); Estimated Glomerular Filt Rate 50 mL/min (>60); HEMOLYSIS < 15 (0-50); Potassium 4.8 mmol/L (3.4-5.1); Sodium 132 mmol/L (137-145)
[2024-08-14 20:51] LABS: Glucose 504 mg/dL (80-110)
[2024-08-14 21:03] LABS: Creatinine Urine Random 81.59 mg/dL; Protein (Total) Urine Random 12 mg/dL (0-12); Protein Creatinine Ratio Urine 0.14 GRAM/24H
== END ==
PROVIDERS: PCP Family Medicine; Visit Provider Student in an Organized Health Care Education/Training Program
DX: N05.9 Unspecified nephritic syndrome with unspecified morphologic changes (principal); D70.9 Neutropenia, unspecified; D63.1 Anemia in chronic kidney disease; N25.81 Secondary hyperparathyroidism of renal origin; R80.9 Proteinuria, unspecified
CPT/HCPCS: 80048; 82570; 83970; 84156; 85014; 85018

== ENCOUNTER → 2024-10-02 09:25 | Outpatient (CLI) | payer BC, SELFPAY ==
[2020-12-16 20:56] VITALS: BMI 38.7
--- NOTE | 2024-10-02 09:27 | DI.US.S_ITS ---
PROCEDURE: US PERIPH VENOUS LOW EXTREM RT INDICATIONS: swelling right leg- h/o DVT -- suspicious for DVT TECHNIQUE: Real-time imaging, as well as color and pulse Doppler interrogation, were performed of the lower extremity deep veins from the inguinal ligament to the popliteal fossa, with documentation of the visualized calf veins. COMPARISON: [facility], , US PERIP VENOUS LOW EXTREM RT, 06/10/2023, 9:52. FINDINGS: Intraluminal filling defect is seen within right popliteal vein with decreased flow and poor compressibility. IMPRESSION: Finding is concerning for new nonocclusive venous thrombosis in right popliteal vein versus recannulized residual from prior history of DVT. Dictated by: Corona Avila M.D. on 10/02/2024 at 11:02 Approved by: Corona Avila M.D. on 10/02/2024 at 11:03
== END ==
LOC: US 09:26
PROVIDERS: PCP Family Medicine; Referring Provider Family Medicine; Visit Provider Family Medicine
DX: M79.89 Other specified soft tissue disorders (principal); Z86.718 Personal history of other venous thrombosis and embolism
CPT/HCPCS: 93971

== ENCOUNTER → 2024-11-11 14:02 | Outpatient (CLI) | payer BC, SELFPAY ==
[2020-12-16 20:56] VITALS: BMI 38.7
[2024-11-11 19:03] LABS: Hematocrit 45.5 % (41-53); Hemoglobin 15.5 g/dL (13.5-17.5)
[2024-11-11 19:05] LABS: Hematocrit 45.5 % (41-53); Hemoglobin 15.6 g/dL (13.5-17.5); Mean Corpuscular HGB Conc 34.3 % (30-36); Mean Corpuscular Hemoglobin 29.3 PG (26-34); Mean Corpuscular Volume 85.5 fL (80-100); Platelet Count 159 X10^3/uL (150-400); Red Blood Cell Count 5.33 X10^6/uL (4.5-5.9); Red Cell Distribution Width 14.6 % (11.6-14.8); White Blood Cell Count 7.6 X10^3/uL (4.5-11.0)
[2024-11-11 19:06] LABS: BUN Creatinine Ratio 25.5 (6-22); Blood Urea Nitrogen 41 mg/dL (9-20); Calcium 9.5 mg/dL (8.4-10.2); Carbon Dioxide 22 mmol/L (22-32); Chloride 104 mmol/L (98-107); Estimated Glomerular Filt Rate 48 mL/min (>60); Glucose 375 mg/dL (70-99); HEMOLYSIS 17 (0-50); Potassium 4.8 mmol/L (3.4-5.1); Sodium 138 mmol/L (137-145)
[2024-11-11 19:20] LABS: INR 1.1 (0.9-1.3)
[2024-11-11 19:22] LABS: PTT Partial Thromboplastin Tim 46 SECONDS (25.1-36.5)
[2024-11-11 19:36] LABS: Thyroid Stimulating Hormone 3.02 uIU/mL (0.47-4.68)
[2024-11-11 19:38] LABS: Prostate Specific Antigen Scrn 0.587 ng/mL (0.1-4.0)
[2024-11-11 19:55] LABS: Creatinine Urine Random 33.91 mg/dL; Protein (Total) Urine Random 13 mg/dL (0-12); Protein Creatinine Ratio Urine 0.38 GRAM/24H
[2024-11-13 07:09] LABS: Parathyroid Hormone Int 37 pg/mL (15-65)
== END ==
PROVIDERS: PCP Family Medicine; Visit Provider Student in an Organized Health Care Education/Training Program
DX: N05.9 Unspecified nephritic syndrome with unspecified morphologic changes (principal); D70.9 Neutropenia, unspecified; D63.1 Anemia in chronic kidney disease; N25.81 Secondary hyperparathyroidism of renal origin; R80.9 Proteinuria, unspecified; E11.65 Type 2 diabetes mellitus with hyperglycemia; I10 Essential (primary) hypertension; Z12.5 Encounter for screening for malignant neoplasm of prostate; I82.409 Acute embolism and thrombosis of unspecified deep veins of unspecified lower extremity
CPT/HCPCS: 80048; 82570; 83970; 84156; 84443; 85014; 85018; 85027; 85610; 85730; G0103

== ENCOUNTER → 2025-03-29 10:22 | Outpatient (CLI) | payer BC, SELFPAY ==
[2025-03-07 13:54] VITALS: BMI 38.7
[2025-03-29 11:14] LABS: Hematocrit 44.0 % (41-53); Hemoglobin 15.1 g/dL (13.5-17.5)
[2025-03-29 11:28] LABS: Albumin 4.1 g/dL (3.5-5.0); Blood Urea Nitrogen 28 mg/dL (9-20); Calcium 9.2 mg/dL (8.4-10.2); Carbon Dioxide 25 mmol/L (22-32); Chloride 104 mmol/L (98-107); Cholesterol 181 mg/dL (140-199); Estimated Glomerular Filt Rate > 60 mL/min (>60); Glucose 289 mg/dL (70-99); HDL Cholesterol 30 mg/dL (40-60); HEMOLYSIS 17 (0-50); Phosphorous 3.3 mg/dL (2.3-3.7); Potassium 5.0 mmol/L (3.4-5.1); Sodium 136 mmol/L (137-145); Triglycerides 186 mg/dL (35-150)
[2025-03-29 11:30] LABS: Hemoglobin A1C% w Est Avg Glu 9.1 % (4.0-6.0)
[2025-03-29 11:30] LABS: Protein (Total) Urine Random 16 mg/dL (0-12); Protein Creatinine Ratio Urine 0.43 GRAM/24H
[2025-03-29 11:44] LABS: Vitamin D 25 Hydroxy (D3) 29.8 ng/mL (30.0-100.0)
[2025-03-29 12:35] LABS: Folate 8.0 ng/mL (2.76-20.0); Vitamin B12 437 pg/mL (239-931)
[2025-04-01 03:36] LABS: Calcium 9.5 mg/dL (8.6-10.2); Parathyroid Hormone, Intact 29 pg/mL (15-65)
== END ==
PROVIDERS: PCP Family Medicine; Referring Provider Family Medicine; Visit Provider Family Medicine
DX: E11.41 Type 2 diabetes mellitus with diabetic mononeuropathy (principal); I10 Essential (primary) hypertension; Z79.4 Long term (current) use of insulin; N26.1 Atrophy of kidney (terminal); Z51.81 Encounter for therapeutic drug level monitoring
CPT/HCPCS: 36415; 80061; 80069; 82306; 82310; 82570; 82607; 82746; 83036; 83970; 84156; 85014; 85018